=== PATIENT | male | born 1945 | race Caucasian/White ===

== ENCOUNTER 2016-09-12 07:55 | Inpatient (IN) | payer OTHER, MEDICAID ==
[~2016-09-12] VITALS: Ht 180.3 cm; Wt 78.0 kg
[2016-09-12 07:55] VITALS: BP_SYST 159
[~2016-09-12 07:55] MED LIST: CAT.1 PO; CYM30 PO; HYDR-4100 PO; IPRA3AMP9 INH; LEVO500T20 PO; LEVO50TA77 PO; METO-290 PO; MULT PO; NEU300 PO; ONDA4TAB5 PO; PRO40 PO; SSREG SUBCUT; WARF1TAB2 PO
[2016-09-12] MEDS ORDERED: NACL 0.9% 1,000 ML IV ONE (08:14)
[2016-09-12] MEDS ORDERED: LORazepam 2 MG/ML VIAL (FOR ER USE) IVP ONE (08:15)
[2016-09-12 09:05] LABS: ANION GAP 22 (5-15); CALCIUM 8.8 mg/dL (8.4-11.0); CHLORIDE 103 mmol/L (98-107); CREATININE 5.89 mg/dL (0.55-1.30); GLUCOSE 131 mg/dL (70-99); POTASSIUM 3.9 mmol/L (3.5-5.1); SODIUM SERUM 143 mmol/L (136-145); UREA NITROGEN, BLOOD 55 mg/dL (8-21)
[2016-09-12 09:09] LABS: INR 1.1 (0.80-1.20); PROTHROMBIN TIME 11.9 SECS (9.5-12.5)
[2016-09-12 09:12] LABS: ALANINE AMINOTRANSFERASE 40 U/L (12-78); ALBUMIN 2.8 g/dL (3.4-4.8); ASPARTATE AMINOTRANSFERASE 66 U/L (10-37); TOTAL BILIRUBIN 0.8 mg/dL (0.0-1.0); TOTAL PROTEIN, SERUM 7.3 g/dL (6.4-8.3)
[2016-09-12 09:14] LABS: BASOPHILS # (AUTO) 0.1 K/uL (0.0-0.2); BASOPHILS % (AUTO) 0.7 % (0.0-2.0); EOSINOPHILS % (AUTO) 0.3 % (0.0-4.0); HEMATOCRIT 27.3 % (36-54); HEMOGLOBIN 9.1 g/dL (14.0-18.0); LYMPHOCYTES # (AUTO) 0.8 K/uL (1.0-5.5); LYMPHOCYTES % (AUTO) 6.7 % (20.5-51.5); MEAN CORPUSCULAR HEMOGLOBIN 31 pg (27-31); MEAN CORPUSCULAR HGB CONC 34 % (32-36); MEAN CORPUSCULAR VOLUME 93 fL (79.0-98.0); MONOCYTES # (AUTO) 0.7 K/uL (0.0-1.0); MONOCYTES % (AUTO) 6.2 % (1.7-9.3); NEUTROPHILS # (AUTO) 10.1 K/uL (1.8-7.7); NEUTROPHILS % (AUTO) 86.1 % (40.0-70.0); PLATELET COUNT (AUTO) 286 K/uL (130-430); RED BLOOD CELL COUNT(AUTO) 2.94 MIL/uL (4.2-6.2); RED CELL DISTRIBUTION WIDTH 13.5 % (9.0-15.0); WHITE BLOOD COUNT (AUTO) 11.7 K/uL (4.8-10.8)
[2016-09-12] MEDS ORDERED: FAMO20TA98 PO (11:45)
[2016-09-12] MEDS ORDERED: FOLI0.8T2 PO (11:45)
[2016-09-12] MEDS ORDERED: MAXPM1 IV (11:45)
[2016-09-12] MEDS ORDERED: DULR10 RC (11:51)
[2016-09-12] MEDS ORDERED: HYDR-1189 PO (11:51)
[2016-09-12] MEDS ORDERED: ACET-1010 PO (11:51)
[2016-09-12] MEDS ORDERED: ACET-2165 PO (11:51)
[2016-09-12] MEDS ORDERED: DIPH25CA83 PO (11:51)
[2016-09-12] MEDS ORDERED: LACT10SO66 PO (11:51)
[2016-09-12 12:10] VITALS: BP_SYST 142
[2016-09-12 13:48] LABS: BLOOD, URINE 3+ (NEGATIVE); COLOR,URINE YELLOW (YELLOW); GLUCOSE,URINE NEGATIVE (NEGATIVE); KETONES,URINE 1+ (NEGATIVE); LEUKOCYTE ESTERASE ,URINE 1+ (NEGATIVE); NITRITE, URINE NEGATIVE (NEGATIVE); PH,URINE 5.5 (5.0-8.0); PROTEIN URINE 2+ (NEGATIVE); UROBILINOGEN,URINE 0.2 (0.2-1.0)
[2016-09-12 14:09] LABS: BILIRUBIN,URINE NEGATIVE (NEGATIVE); CLARITY/URINE HAZY (CLEAR)
[2016-09-12 14:10] LABS: BACTERIA,URINE FEW /HPF (None Seen); MUCUS,URINE None Seen /LPF (None Seen); RBC,URINE NONE SEEN /HPF (0-3); URINE AMORPHOUS URATE 2+ /HPF (None Seen)
[2016-09-12] MEDS ORDERED: ACETAMINOPHEN 325 MG TABLET PO PRN (15:15)
[2016-09-12 16:34] VITALS: BP_SYST 130
[2016-09-12] MEDS: FAMOTIDINE 20 MG TABLET PO SCH (17:30)
[2016-09-12 20:00] VITALS: BP_SYST 137
[2016-09-12] MEDS ORDERED: CEFEPIME 1 GM/DEXT-ISO-OSM 50 ML FROZ.PIGGY IV SCH (21:00)
[2016-09-12] MEDS: INSULIN REGULAR, HUMAN 100 UNITS/ML, 10 ML VIAL (novoLIN R) SUBCUT PRN (21:02)
[2016-09-12] MEDS: DIPHENHYDRAMINE HCL 25 MG CAPSULE PO PRN (21:14)
[2016-09-12] MEDS: HYDROcodone/ACETAMIN 5-325 MG TAB (NORCO/ VICODIN) PO PRN (21:14)
[2016-09-12] MEDS ORDERED: CEFEPIME 1 GM/VIAL (MAXIPIME) ONE (21:44)
[2016-09-12] MEDS: CEFEPIME 1 GM in D5W 50 ML IV SCH (21:55)
[2016-09-13] VITALS: BP_SYST 113
[2016-09-13 05:13] VITALS: BP_SYST 126
[2016-09-13] MEDS: FAMOTIDINE 20 MG TABLET PO SCH (06:01)
[2016-09-13 07:51] LABS: ALANINE AMINOTRANSFERASE 37 U/L (12-78); ALBUMIN 2.9 g/dL (3.4-4.8); ANION GAP 15 (5-15); ASPARTATE AMINOTRANSFERASE 46 U/L (10-37); CALCIUM 8.5 mg/dL (8.4-11.0); CHLORIDE 107 mmol/L (98-107); GLUCOSE 106 mg/dL (70-99); POTASSIUM 3.4 mmol/L (3.5-5.1); SODIUM SERUM 145 mmol/L (136-145); TOTAL BILIRUBIN 0.5 mg/dL (0.0-1.0); TOTAL PROTEIN, SERUM 7.1 g/dL (6.4-8.3); UREA NITROGEN, BLOOD 65 mg/dL (8-21)
[2016-09-13 08:00] VITALS: BP_SYST 158
[2016-09-13 08:08] LABS: BASOPHILS % (AUTO) 0.2 % (0.0-2.0); EOSINOPHILS # (AUTO) 0.3 K/uL (0.0-0.4); EOSINOPHILS % (AUTO) 3.1 % (0.0-4.0); HEMATOCRIT 26.7 % (36-54); LYMPHOCYTES # (AUTO) 1.2 K/uL (1.0-5.5); LYMPHOCYTES % (AUTO) 11.2 % (20.5-51.5); MEAN CORPUSCULAR HEMOGLOBIN 32 pg (27-31); MEAN CORPUSCULAR HGB CONC 34 % (32-36); MEAN CORPUSCULAR VOLUME 94 fL (79.0-98.0); MONOCYTES # (AUTO) 0.8 K/uL (0.0-1.0); MONOCYTES % (AUTO) 7.6 % (1.7-9.3); NEUTROPHILS # (AUTO) 8.4 K/uL (1.8-7.7); NEUTROPHILS % (AUTO) 77.9 % (40.0-70.0); PLATELET COUNT (AUTO) 261 K/uL (130-430); RED BLOOD CELL COUNT(AUTO) 2.86 MIL/uL (4.2-6.2); RED CELL DISTRIBUTION WIDTH 13.8 % (9.0-15.0); WHITE BLOOD COUNT (AUTO) 10.7 K/uL (4.8-10.8)
[2016-09-13] MEDS ORDERED: DIPHENHYDRAMINE INJ 50 MG/ML VIAL IVP ONE (08:45)
[2016-09-13] MEDS: NEPHROVITE, (FOLIC ACID/VITAMIN B COMP W-C 1 TAB) PO SCH (08:51)
[2016-09-13] MEDS ORDERED: DIPHENHYDRAMINE INJ 50 MG/ML VIAL ONE (08:55)
[2016-09-13] MEDS ORDERED: BISACODYL 10 MG/SUPPOSITORY RC PRN (09:00)
[2016-09-13] MEDS ORDERED: PERMETHRIN 60 GM TOPICAL CREAM (ELIMITE) TP ONE ×3 (09:00→17:00)
[2016-09-13 12:42] VITALS: BP_SYST 139
[2016-09-13 16:54] VITALS: BP_SYST 140
[2016-09-13 19:45] VITALS: BP_SYST 126
[2016-09-13] MEDS: HYDROcodone/ACETAMIN 5-325 MG TAB (NORCO/ VICODIN) PO PRN (20:04)
[2016-09-13] MEDS: CEFEPIME 1 GM in D5W 50 ML IV SCH (21:51)
[2016-09-13] MEDS ORDERED: POTASSIUM CHLORIDE 20 MEQ TAB.PRT.SR PO ONE (22:30)
[2016-09-13] MEDS: D5/0.45 NS 1,000 ML IV SCH (22:54)
[2016-09-13] MEDS: LACTULOSE 20 GM/30 ML UDC PO PRN (23:37)
[2016-09-13] MEDS: DIPHENHYDRAMINE HCL 25 MG CAPSULE PO PRN (23:37)
[2016-09-14] VITALS (7 sets, daily range): BP systolic 120–133
[2016-09-14] MEDS: FAMOTIDINE 20 MG TABLET PO SCH (06:17)
[2016-09-14] MEDS: HYDROcodone/ACETAMIN 5-325 MG TAB (NORCO/ VICODIN) PO PRN ×2 (08:02→16:16)
[2016-09-14] MEDS: NEPHROVITE, (FOLIC ACID/VITAMIN B COMP W-C 1 TAB) PO SCH (09:00)
[2016-09-14] MEDS: MORPHINE 2 MG/ML INJ. SYRINGE IVP PRN ×2 (11:34→18:04)
[2016-09-14 11:53] LABS: BASOPHILS % (AUTO) 0.4 % (0.0-2.0); EOSINOPHILS # (AUTO) 0.5 K/uL (0.0-0.4); EOSINOPHILS % (AUTO) 5.3 % (0.0-4.0); HEMATOCRIT 24.2 % (36-54); HEMOGLOBIN 8.1 g/dL (14.0-18.0); LYMPHOCYTES # (AUTO) 1.2 K/uL (1.0-5.5); LYMPHOCYTES % (AUTO) 11.6 % (20.5-51.5); MEAN CORPUSCULAR HEMOGLOBIN 31 pg (27-31); MEAN CORPUSCULAR HGB CONC 33 % (32-36); MEAN CORPUSCULAR VOLUME 94 fL (79.0-98.0); MONOCYTES # (AUTO) 0.6 K/uL (0.0-1.0); NEUTROPHILS % (AUTO) 76.7 % (40.0-70.0); PLATELET COUNT (AUTO) 255 K/uL (130-430); RED BLOOD CELL COUNT(AUTO) 2.58 MIL/uL (4.2-6.2); RED CELL DISTRIBUTION WIDTH 14.1 % (9.0-15.0); WHITE BLOOD COUNT (AUTO) 10.3 K/uL (4.8-10.8)
[2016-09-14 12:05] LABS: ALANINE AMINOTRANSFERASE 27 U/L (12-78); ALBUMIN 2.5 g/dL (3.4-4.8); ANION GAP 10 (5-15); ASPARTATE AMINOTRANSFERASE 31 U/L (10-37); CALCIUM 7.9 mg/dL (8.4-11.0); CHLORIDE 107 mmol/L (98-107); CREATININE 6.73 mg/dL (0.55-1.30); GLUCOSE 119 mg/dL (70-99); POTASSIUM 3.6 mmol/L (3.5-5.1); SODIUM SERUM 141 mmol/L (136-145); TOTAL BILIRUBIN 0.4 mg/dL (0.0-1.0); TOTAL PROTEIN, SERUM 6.4 g/dL (6.4-8.3); UREA NITROGEN, BLOOD 64 mg/dL (8-21)
[2016-09-14] MEDS: D5/0.45 NS 1,000 ML IV SCH (12:09)
[2016-09-14] MEDS: DIPHENHYDRAMINE HCL 25 MG CAPSULE PO PRN (18:36)
[2016-09-14] MEDS: CEFEPIME 1 GM in D5W 50 ML IV SCH (21:00)
[2016-09-15] VITALS: BP_SYST 122
[2016-09-15] MEDS: DIPHENHYDRAMINE HCL 25 MG CAPSULE PO PRN ×2 (01:04→21:02)
[2016-09-15] MEDS: D5/0.45 NS 1,000 ML IV SCH ×3 (01:04→21:02)
[2016-09-15] MEDS: MORPHINE 2 MG/ML INJ. SYRINGE IVP PRN ×3 (01:05→15:45)
[2016-09-15 04:43] VITALS: BP_SYST 128
[2016-09-15] MEDS: FAMOTIDINE 20 MG TABLET PO SCH (07:00)
[2016-09-15 08:00] VITALS: BP_SYST 107
[2016-09-15] MEDS: NEPHROVITE, (FOLIC ACID/VITAMIN B COMP W-C 1 TAB) PO SCH (09:00)
[2016-09-15] MEDS ORDERED: GELATIN SPONGE 100 TP ONE (09:15)
[2016-09-15] MEDS ORDERED: THROMBIN (BOVINE) 5000 UNITS/ VIAL TP ONE (09:15)
[2016-09-15] MEDS ORDERED: CEFAZOLIN 2 GM IVPB PREMIX 50 ML IV ONE (09:15)
[2016-09-15] MEDS ORDERED: NS 1000 ML BAG IV ONE (09:15)
[2016-09-15] MEDS ORDERED: KETAMINE HCL 500 MG/10 ML VIAL IVP ONE (09:15)
[2016-09-15] MEDS ORDERED: LR 1,000 ML IV.SOLN IV ONE (09:15)
[2016-09-15] MEDS ORDERED: NS 100 ML BAG IV ONE (09:15)
[2016-09-15] MEDS ORDERED: MIDAZOLAM HCL 5 MG/5 ML VIAL IVP ONE (09:15)
[2016-09-15] MEDS ORDERED: LIDOCAINE/EPI 1% 1:100000 20 ML VIAL INJ ONE (09:15)
[2016-09-15] MEDS ORDERED: KETAMINE HCL 500 MG/10 ML VIAL ONE (09:23)
[2016-09-15] MEDS ORDERED: LR 1,000 ML IV SCH ×2 (09:50→09:52)
[2016-09-15] MEDS ORDERED: HYDROmorphone 1 MG INJ. 1 MG/ML AMPUL IVP PRN ×2 (10:00)
[2016-09-15] MEDS ORDERED: HYDROmorphone 2 MG/ML VIAL IVP PRN ×4 (10:00)
[2016-09-15] MEDS ORDERED: MEPERIDINE HCL/PF 25 MG/ML DISP.SYRIN IVP PRN ×2 (10:00)
[2016-09-15] MEDS: HYDROcodone/ACETAMIN 5-325 MG TAB (NORCO/ VICODIN) PO PRN (16:37)
[2016-09-15] MEDS: INSULIN REGULAR, HUMAN 100 UNITS/ML, 10 ML VIAL (novoLIN R) SUBCUT PRN (17:41)
[2016-09-15 20:10] VITALS: BP_SYST 140
[2016-09-15] MEDS: CEFEPIME 1 GM in D5W 50 ML IV SCH (21:02)
[2016-09-16 00:02] VITALS: BP_SYST 150
[2016-09-16] MEDS: DIPHENHYDRAMINE HCL 25 MG CAPSULE PO PRN ×2 (03:26→09:26)
[2016-09-16] MEDS: MORPHINE 2 MG/ML INJ. SYRINGE IVP PRN ×3 (03:26→14:27)
[2016-09-16 03:35] VITALS: BP_SYST 148
[2016-09-16] MEDS: FAMOTIDINE 20 MG TABLET PO SCH (06:56)
[2016-09-16 09:25] VITALS: BP_SYST 102
[2016-09-16] MEDS: LACTULOSE 20 GM/30 ML UDC PO PRN (09:26)
[2016-09-16] MEDS: NEPHROVITE, (FOLIC ACID/VITAMIN B COMP W-C 1 TAB) PO SCH (09:26)
[2016-09-16] MEDS: HYDROcodone/ACETAMIN 5-325 MG TAB (NORCO/ VICODIN) PO PRN ×2 (09:30→16:25)
[2016-09-16 12:50] VITALS: BP_SYST 110
[2016-09-16] MEDS: D5/0.45 NS 1,000 ML IV SCH (14:27)
[2016-09-16 16:56] VITALS: BP_SYST 135
[2016-09-16] MEDS: CEFEPIME 1 GM in D5W 50 ML IV SCH (20:23)
[2016-09-16 23:34] VITALS: BP_SYST 101
[2016-09-17] MEDS: HYDROcodone/ACETAMIN 5-325 MG TAB (NORCO/ VICODIN) PO PRN ×2 (01:11→18:20)
[2016-09-17] MEDS: DIPHENHYDRAMINE HCL 25 MG CAPSULE PO PRN ×2 (01:15→18:20)
[2016-09-17 04:02] VITALS: BP_SYST 122
[2016-09-17] MEDS: D5/0.45 NS 1,000 ML IV SCH ×2 (05:34→15:06)
[2016-09-17] MEDS: FAMOTIDINE 20 MG TABLET PO SCH (06:52)
[2016-09-17 08:00] VITALS: BP_SYST 110
[2016-09-17] MEDS: NEPHROVITE, (FOLIC ACID/VITAMIN B COMP W-C 1 TAB) PO SCH (10:37)
[2016-09-17 12:53] VITALS: BP_SYST 121
[2016-09-17] MEDS: MORPHINE 2 MG/ML INJ. SYRINGE IVP PRN (15:03)
[2016-09-17 16:34] VITALS: BP_SYST 116
[2016-09-17 20:30] VITALS: BP_SYST 112
[2016-09-17] MEDS: CEFEPIME 1 GM in D5W 50 ML IV SCH (22:36)
[2016-09-17] MEDS: INSULIN REGULAR, HUMAN 100 UNITS/ML, 10 ML VIAL (novoLIN R) SUBCUT PRN (22:43)
[2016-09-18] VITALS (7 sets, daily range): BP systolic 105–143
[2016-09-18] MEDS: D5/0.45 NS 1,000 ML IV SCH (05:41)
[2016-09-18] MEDS: FAMOTIDINE 20 MG TABLET PO SCH (06:13)
[2016-09-18] MEDS: INSULIN REGULAR, HUMAN 100 UNITS/ML, 10 ML VIAL (novoLIN R) SUBCUT PRN (06:35)
[2016-09-18] MEDS: NEPHROVITE, (FOLIC ACID/VITAMIN B COMP W-C 1 TAB) PO SCH (09:42)
[2016-09-18] MEDS: MORPHINE 2 MG/ML INJ. SYRINGE IVP PRN (09:49)
[2016-09-18] MEDS: DIPHENHYDRAMINE HCL 25 MG CAPSULE PO PRN ×2 (10:57→18:07)
[2016-09-18] MEDS: HYDROcodone/ACETAMIN 5-325 MG TAB (NORCO/ VICODIN) PO PRN (12:39)
[2016-09-18] MEDS ORDERED: MORPHINE 2 MG/ML INJ. SYRINGE IVP ONE (13:00)
[2016-09-18] MEDS: CEFEPIME 1 GM in D5W 50 ML IV SCH (21:23)
[2016-09-19] VITALS (7 sets, daily range): BP systolic 104–138
[2016-09-19] MEDS: D5/0.45 NS 1,000 ML IV SCH ×3 (01:23→17:22)
[2016-09-19] MEDS: FAMOTIDINE 20 MG TABLET PO SCH (07:13)
[2016-09-19] MEDS: NEPHROVITE, (FOLIC ACID/VITAMIN B COMP W-C 1 TAB) PO SCH (09:19)
[2016-09-19] MEDS: MORPHINE 2 MG/ML INJ. SYRINGE IVP PRN (09:32)
[2016-09-19 10:30] LABS: BASOPHILS % (AUTO) 0.3 % (0.0-2.0); EOSINOPHILS # (AUTO) 0.3 K/uL (0.0-0.4); EOSINOPHILS % (AUTO) 2.9 % (0.0-4.0); HEMOGLOBIN 7.2 g/dL (14.0-18.0); LYMPHOCYTES # (AUTO) 0.5 K/uL (1.0-5.5); LYMPHOCYTES % (AUTO) 5.7 % (20.5-51.5); MEAN CORPUSCULAR HEMOGLOBIN 31 pg (27-31); MEAN CORPUSCULAR HGB CONC 33 % (32-36); MEAN CORPUSCULAR VOLUME 95 fL (79.0-98.0); MONOCYTES # (AUTO) 0.6 K/uL (0.0-1.0); MONOCYTES % (AUTO) 6.5 % (1.7-9.3); NEUTROPHILS # (AUTO) 7.6 K/uL (1.8-7.7); NEUTROPHILS % (AUTO) 84.6 % (40.0-70.0); PLATELET COUNT (AUTO) 161 K/uL (130-430); RED BLOOD CELL COUNT(AUTO) 2.33 MIL/uL (4.2-6.2); RED CELL DISTRIBUTION WIDTH 14.7 % (9.0-15.0)
[2016-09-19 10:37] LABS: ALBUMIN 1.9 g/dL (3.4-4.8); ANION GAP 6 (5-15); ASPARTATE AMINOTRANSFERASE 23 U/L (10-37); CALCIUM 7.3 mg/dL (8.4-11.0); CHLORIDE 102 mmol/L (98-107); CREATININE 4.58 mg/dL (0.55-1.30); GLUCOSE 127 mg/dL (70-99); POTASSIUM 3.2 mmol/L (3.5-5.1); SODIUM SERUM 135 mmol/L (136-145); TOTAL BILIRUBIN 0.4 mg/dL (0.0-1.0); TOTAL PROTEIN, SERUM 5.7 g/dL (6.4-8.3); UREA NITROGEN, BLOOD 33 mg/dL (8-21)
[2016-09-19 10:59] LABS: ALANINE AMINOTRANSFERASE 8 U/L (12-78)
[2016-09-19] MEDS ORDERED: CEFEPIME 1 GM in D5W 50 ML IV SCH (21:00)
[2016-09-20] MEDS: DIPHENHYDRAMINE HCL 25 MG CAPSULE PO PRN (00:30)
[2016-09-20] MEDS: MORPHINE 2 MG/ML INJ. SYRINGE IVP PRN ×2 (00:31→08:49)
[2016-09-20 03:42] VITALS: BP_SYST 102
[2016-09-20] MEDS: FAMOTIDINE 20 MG TABLET PO SCH (06:43)
[2016-09-20 08:00] VITALS: BP_SYST 80
[2016-09-20] MEDS: NEPHROVITE, (FOLIC ACID/VITAMIN B COMP W-C 1 TAB) PO SCH (08:49)
[2016-09-20 09:02] VITALS: BP_SYST 80
== END 2016-09-20 11:10 | DRG 252 ==
LOC: SED 07:55 → SMU 11:40
PROVIDERS: ATTEND Internal Medicine Hospice and Palliative Medicine
PROC: 5A1D60Z (ICD-10-PCS; 2016-09-15)
PROC: 041 Lower Arteries, Bypass (ICD-10-PCS; principal; 2016-09-16)
PROC: 06HN33Z Insertion of Infusion Device into Left Femoral Vein, Percutaneous Approach (ICD-10-PCS; 2016-09-16)
DX: T82.41XA Breakdown (mechanical) of vascular dialysis catheter, initial encounter (principal); N18.6 End stage renal disease; I13.2 Hypertensive heart and chronic kidney disease with heart failure and with stage 5 chronic kidney disease, or end stage renal disease; S42.309A Unspecified fracture of shaft of humerus, unspecified arm, initial encounter for closed fracture; B86 Scabies; E11.22 Type 2 diabetes mellitus with diabetic chronic kidney disease; J44.9 Chronic obstructive pulmonary disease, unspecified; M19.90 Unspecified osteoarthritis, unspecified site; E11.51 Type 2 diabetes mellitus with diabetic peripheral angiopathy without gangrene; E11.40 Type 2 diabetes mellitus with diabetic neuropathy, unspecified; K30 Functional dyspepsia; M48.00 Spinal stenosis, site unspecified; D63.1 Anemia in chronic kidney disease; Y84.1 Kidney dialysis as the cause of abnormal reaction of the patient, or of later complication, without mention of misadventure at the time of the procedure; Y92.89 Other specified places as the place of occurrence of the external cause; Z79.899 Other long term (current) drug therapy
CPT/HCPCS: 36415; 71010; 72192-TC; 73030; 73060-TC; 73502; 80053; 81000-TC; 82962; 85025; 85610-TC; 85730-TC; 86886; 86900; 86901; 86920; 87081; 87086; 87210-TC; 90935; 90937; 93005; 93970; 96361; 96374; 99285; G0365; J0690; J0692; J1200; J1815; J2060; J2250; J2270; J7030; J7060; J7120; P9021; Q0163

== ENCOUNTER 2016-09-27 15:44 | Inpatient (IN) | payer OTHER, MEDICAID ==
[~2016-09-27] VITALS: Ht 188 cm; Wt 83.5 kg
[~2016-09-27 15:44] MED LIST changes: +ACET-1010 PO; +ACET-2165 PO; -CAT.1 PO; -CYM30 PO; +DIPH25CA83 PO; +DULR10 RC; +FAMO20TA98 PO; +FOLI0.8T2 PO; +HYDR-1189 PO; -HYDR-4100 PO; -IPRA3AMP9 INH; +LACT10SO66 PO; -LEVO500T20 PO; -LEVO50TA77 PO; -METO-290 PO; -MULT PO; -NEU300 PO; -ONDA4TAB5 PO; -PRO40 PO; -SSREG SUBCUT; -WARF1TAB2 PO
[2016-09-27 15:50] VITALS: BP_SYST 100
[2016-09-27 17:02] LABS: BASOPHILS % (AUTO) 0.5 % (0.0-2.0); EOSINOPHILS # (AUTO) 0.4 K/uL (0.0-0.4); EOSINOPHILS % (AUTO) 4.4 % (0.0-4.0); HEMATOCRIT 24.4 % (36-54); LYMPHOCYTES # (AUTO) 1.1 K/uL (1.0-5.5); LYMPHOCYTES % (AUTO) 12.9 % (20.5-51.5); MEAN CORPUSCULAR HEMOGLOBIN 30 pg (27-31); MEAN CORPUSCULAR HGB CONC 33 % (32-36); MEAN CORPUSCULAR VOLUME 92 fL (79.0-98.0); MONOCYTES # (AUTO) 0.4 K/uL (0.0-1.0); MONOCYTES % (AUTO) 4.2 % (1.7-9.3); NEUTROPHILS # (AUTO) 6.6 K/uL (1.8-7.7); PLATELET COUNT (AUTO) 258 K/uL (130-430); RED BLOOD CELL COUNT(AUTO) 2.65 MIL/uL (4.2-6.2); RED CELL DISTRIBUTION WIDTH 14.6 % (9.0-15.0); WHITE BLOOD COUNT (AUTO) 8.5 K/uL (4.8-10.8)
[2016-09-27 17:14] LABS: BILIRUBIN,URINE NEGATIVE (NEGATIVE); BLOOD, URINE 3+ (NEGATIVE); CLARITY/URINE SL CLOUDY (CLEAR); COLOR,URINE YELLOW (YELLOW); GLUCOSE,URINE NEGATIVE (NEGATIVE); KETONES,URINE NEGATIVE (NEGATIVE); LEUKOCYTE ESTERASE ,URINE 3+ (NEGATIVE); NITRITE, URINE NEGATIVE (NEGATIVE); PH,URINE 5.5 (5.0-8.0); PROTEIN URINE 2+ (NEGATIVE); UROBILINOGEN,URINE 0.2 (0.2-1.0)
[2016-09-27 17:15] LABS: ALANINE AMINOTRANSFERASE 15 U/L (12-78); ALBUMIN 2.2 g/dL (3.4-4.8); AMYLASE 66 U/L (0-100); ANION GAP 12 (5-15); ASPARTATE AMINOTRANSFERASE 19 U/L (10-37); CALCIUM 7.6 mg/dL (8.4-11.0); CHLORIDE 95 mmol/L (98-107); GLUCOSE 102 mg/dL (70-99); LIPASE 103 U/L (73-393); POTASSIUM 3.9 mmol/L (3.5-5.1); SODIUM SERUM 132 mmol/L (136-145); TOTAL BILIRUBIN 0.3 mg/dL (0.0-1.0); TOTAL PROTEIN, SERUM 6.6 g/dL (6.4-8.3); UREA NITROGEN, BLOOD 84 mg/dL (8-21)
[2016-09-27 17:18] LABS: CREATININE 11.77 mg/dL (0.55-1.30)
[2016-09-27 17:23] LABS: RBC,URINE >100 /HPF (0-3)
[2016-09-27 17:24] LABS: BACTERIA,URINE FEW /HPF (None Seen); WBC,URINE >100 /HPF (0-3)
[2016-09-27] MEDS ORDERED: ASCO500T20 PO (18:28)
[2016-09-27] MEDS ORDERED: SSNOVOLOG SUBCUT (18:28)
[2016-09-27] MEDS ORDERED: ONDANSETRON HCL 4 MG/2 ML VIAL IVP ONE (18:30)
[2016-09-27] MEDS ORDERED: HYDROmorphone 1 MG INJ. 1 MG/ML AMPUL IVP ONE (18:30)
[2016-09-27] MEDS ORDERED: CEFTAZIDIME 1 GM VIAL ONE (18:35)
[2016-09-27 19:50] VITALS: BP_SYST 100
[2016-09-28 00:24] VITALS: BP_SYST 118
[2016-09-28 04:06] VITALS: BP_SYST 104
[2016-09-28 07:53] LABS: BASOPHILS % (AUTO) 0.3 % (0.0-2.0); EOSINOPHILS # (AUTO) 0.4 K/uL (0.0-0.4); EOSINOPHILS % (AUTO) 4.2 % (0.0-4.0); HEMOGLOBIN 7.6 g/dL (14.0-18.0); LYMPHOCYTES # (AUTO) 0.8 K/uL (1.0-5.5); LYMPHOCYTES % (AUTO) 9.1 % (20.5-51.5); MEAN CORPUSCULAR HEMOGLOBIN 31 pg (27-31); MEAN CORPUSCULAR HGB CONC 33 % (32-36); MEAN CORPUSCULAR VOLUME 93 fL (79.0-98.0); MONOCYTES # (AUTO) 0.4 K/uL (0.0-1.0); MONOCYTES % (AUTO) 4.3 % (1.7-9.3); NEUTROPHILS # (AUTO) 6.8 K/uL (1.8-7.7); NEUTROPHILS % (AUTO) 82.1 % (40.0-70.0); PLATELET COUNT (AUTO) 231 K/uL (130-430); RED BLOOD CELL COUNT(AUTO) 2.47 MIL/uL (4.2-6.2); RED CELL DISTRIBUTION WIDTH 14.1 % (9.0-15.0); WHITE BLOOD COUNT (AUTO) 8.4 K/uL (4.8-10.8)
[2016-09-28 08:03] VITALS: BP_SYST 133
[2016-09-28 08:11] LABS: ALANINE AMINOTRANSFERASE 14 U/L (12-78); ALBUMIN 1.9 g/dL (3.4-4.8); ANION GAP 12 (5-15); ASPARTATE AMINOTRANSFERASE 17 U/L (10-37); CALCIUM 7.6 mg/dL (8.4-11.0); CHLORIDE 99 mmol/L (98-107); GLUCOSE 84 mg/dL (70-99); POTASSIUM 4.1 mmol/L (3.5-5.1); SODIUM SERUM 134 mmol/L (136-145); TOTAL BILIRUBIN 0.3 mg/dL (0.0-1.0); TOTAL PROTEIN, SERUM 6.2 g/dL (6.4-8.3); UREA NITROGEN, BLOOD 86 mg/dL (8-21)
[2016-09-28 08:27] LABS: CREATININE 11.87 mg/dL (0.55-1.30)
[2016-09-28] MEDS ORDERED: LACTULOSE 20 GM/30 ML UDC PO PRN (09:30)
[2016-09-28] MEDS ORDERED: ACETAMINOPHEN 325 MG TABLET PO SCH (09:30)
[2016-09-28] MEDS: ACETAMINOPHEN 325 MG TABLET PO PRN ×2 (10:04→20:00)
[2016-09-28] MEDS ORDERED: ACETAMINOPHEN 500 MG TABLET PO SCH (12:00)
[2016-09-28 12:07] VITALS: BP_SYST 112
[2016-09-28] MEDS: HYDROcodone/ACETAMIN 5-325 MG TAB (NORCO/ VICODIN) PO PRN (15:48)
[2016-09-28 17:19] VITALS: BP_SYST 103
[2016-09-28] MEDS: cefTRIAXone 1 GM in D5W 50 ML IV SCH (17:51)
[2016-09-28] MEDS ORDERED: cefTRIAXone 1 GM in D5W 50 ML IV SCH (18:30)
[2016-09-28 20:00] VITALS: BP_SYST 130
[2016-09-29] VITALS (7 sets, daily range): BP systolic 94–141
[2016-09-29] MEDS: FAMOTIDINE 20 MG TABLET PO SCH (05:57)
[2016-09-29] MEDS: NEPHROVITE, (FOLIC ACID/VITAMIN B COMP W-C 1 TAB) PO SCH (09:03)
[2016-09-29] MEDS: ASCORBIC ACID 500 MG TABLET PO SCH (09:03)
[2016-09-29] MEDS: HYDROcodone/ACETAMIN 5-325 MG TAB (NORCO/ VICODIN) PO PRN ×2 (09:04→18:12)
[2016-09-29] MEDS ORDERED: CLINDAMYCIN 300 MG in D5W 50 ML IV SCH (12:00)
[2016-09-29] MEDS: DIPHENHYDRAMINE HCL 25 MG CAPSULE PO PRN ×2 (13:53→22:31)
[2016-09-29] MEDS: CLINDAMYCIN 300 MG in D5W 50 ML IV SCH ×2 (15:06→17:44)
[2016-09-29] MEDS: cefTRIAXone 1 GM in D5W 50 ML IV SCH (17:44)
[2016-09-30] MEDS: DIPHENHYDRAMINE INJ 50 MG/ML VIAL IVP PRN ×2 (00:30→23:32)
[2016-09-30] MEDS: CLINDAMYCIN 300 MG in D5W 50 ML IV SCH ×5 (00:30→23:32)
[2016-09-30] MEDS: LORazepam 2 MG/ML VIAL IVP PRN ×2 (00:31→19:56)
[2016-09-30 03:44] VITALS: BP_SYST 128
[2016-09-30] MEDS: FAMOTIDINE 20 MG TABLET PO SCH (06:22)
[2016-09-30 07:31] LABS: BASOPHILS % (AUTO) 0.3 % (0.0-2.0); EOSINOPHILS # (AUTO) 0.3 K/uL (0.0-0.4); EOSINOPHILS % (AUTO) 3.5 % (0.0-4.0); HEMOGLOBIN 7.5 g/dL (14.0-18.0); LYMPHOCYTES # (AUTO) 0.8 K/uL (1.0-5.5); LYMPHOCYTES % (AUTO) 9.2 % (20.5-51.5); MEAN CORPUSCULAR HEMOGLOBIN 31 pg (27-31); MEAN CORPUSCULAR HGB CONC 33 % (32-36); MEAN CORPUSCULAR VOLUME 94 fL (79.0-98.0); MONOCYTES # (AUTO) 0.6 K/uL (0.0-1.0); MONOCYTES % (AUTO) 7.1 % (1.7-9.3); NEUTROPHILS # (AUTO) 6.5 K/uL (1.8-7.7); NEUTROPHILS % (AUTO) 79.9 % (40.0-70.0); PLATELET COUNT (AUTO) 241 K/uL (130-430); RED BLOOD CELL COUNT(AUTO) 2.44 MIL/uL (4.2-6.2); RED CELL DISTRIBUTION WIDTH 14.9 % (9.0-15.0); WHITE BLOOD COUNT (AUTO) 8.2 K/uL (4.8-10.8)
[2016-09-30 07:47] LABS: ALANINE AMINOTRANSFERASE 11 U/L (12-78); ALBUMIN 1.9 g/dL (3.4-4.8); ANION GAP 6 (5-15); ASPARTATE AMINOTRANSFERASE 16 U/L (10-37); CALCIUM 7.7 mg/dL (8.4-11.0); CHLORIDE 102 mmol/L (98-107); CREATININE 4.57 mg/dL (0.55-1.30); GLUCOSE 95 mg/dL (70-99); SODIUM SERUM 138 mmol/L (136-145); TOTAL BILIRUBIN 0.2 mg/dL (0.0-1.0); TOTAL PROTEIN, SERUM 6.1 g/dL (6.4-8.3); UREA NITROGEN, BLOOD 22 mg/dL (8-21)
[2016-09-30 08:00] VITALS: BP_SYST 106
[2016-09-30 08:01] LABS: POTASSIUM 2.8 mmol/L (3.5-5.1)
[2016-09-30] MEDS: NEPHROVITE, (FOLIC ACID/VITAMIN B COMP W-C 1 TAB) PO SCH (09:26)
[2016-09-30] MEDS: ASCORBIC ACID 500 MG TABLET PO SCH (09:26)
[2016-09-30 12:20] VITALS: BP_SYST 100
[2016-09-30] MEDS: HYDROcodone/ACETAMIN 5-325 MG TAB (NORCO/ VICODIN) PO PRN (14:37)
[2016-09-30] MEDS: cefTRIAXone 1 GM in D5W 50 ML IV SCH (17:41)
[2016-09-30 20:00] VITALS: BP_SYST 101
[2016-09-30 21:36] VITALS: BP_SYST 101
[2016-10-01 01:25] VITALS: BP_SYST 144
[2016-10-01 03:34] VITALS: BP_SYST 120
[2016-10-01] MEDS: FAMOTIDINE 20 MG TABLET PO SCH (06:11)
[2016-10-01] MEDS: CLINDAMYCIN 300 MG in D5W 50 ML IV SCH ×4 (06:11→23:14)
[2016-10-01 06:37] LABS: BASOPHILS % (AUTO) 0.2 % (0.0-2.0); EOSINOPHILS # (AUTO) 0.3 K/uL (0.0-0.4); EOSINOPHILS % (AUTO) 3.5 % (0.0-4.0); HEMATOCRIT 24.1 % (36-54); LYMPHOCYTES # (AUTO) 1.1 K/uL (1.0-5.5); LYMPHOCYTES % (AUTO) 12.5 % (20.5-51.5); MEAN CORPUSCULAR HEMOGLOBIN 31 pg (27-31); MEAN CORPUSCULAR HGB CONC 33 % (32-36); MEAN CORPUSCULAR VOLUME 94 fL (79.0-98.0); MONOCYTES # (AUTO) 0.7 K/uL (0.0-1.0); MONOCYTES % (AUTO) 7.7 % (1.7-9.3); NEUTROPHILS # (AUTO) 6.7 K/uL (1.8-7.7); NEUTROPHILS % (AUTO) 76.1 % (40.0-70.0); PLATELET COUNT (AUTO) 222 K/uL (130-430); RED BLOOD CELL COUNT(AUTO) 2.58 MIL/uL (4.2-6.2); RED CELL DISTRIBUTION WIDTH 15.1 % (9.0-15.0); WHITE BLOOD COUNT (AUTO) 8.8 K/uL (4.8-10.8)
[2016-10-01 07:17] LABS: ALANINE AMINOTRANSFERASE 11 U/L (12-78); ALBUMIN 1.8 g/dL (3.4-4.8); ANION GAP 4 (5-15); ASPARTATE AMINOTRANSFERASE 16 U/L (10-37); CALCIUM 7.5 mg/dL (8.4-11.0); CHLORIDE 104 mmol/L (98-107); CREATININE 3.94 mg/dL (0.55-1.30); GLUCOSE 86 mg/dL (70-99); SODIUM SERUM 139 mmol/L (136-145); TOTAL BILIRUBIN 0.3 mg/dL (0.0-1.0); TOTAL PROTEIN, SERUM 5.9 g/dL (6.4-8.3); UREA NITROGEN, BLOOD 18 mg/dL (8-21)
[2016-10-01] MEDS: ASCORBIC ACID 500 MG TABLET PO SCH (08:34)
[2016-10-01] MEDS: NEPHROVITE, (FOLIC ACID/VITAMIN B COMP W-C 1 TAB) PO SCH (08:34)
[2016-10-01] MEDS ORDERED: ALBUMIN HUMAN 25% 200 ML IV ONE (10:15)
[2016-10-01] MEDS ORDERED: POTASSIUM CHLORIDE 20 MEQ TAB.PRT.SR PO ONE (10:30)
[2016-10-01] MEDS ORDERED: ALBUMIN HUMAN 25% 100 ML IV PRN ×3 (11:15→16:00)
[2016-10-01 11:58] VITALS: BP_SYST 99
[2016-10-01 12:06] VITALS: BP_SYST 99
[2016-10-01] MEDS: HYDROcodone/ACETAMIN 5-325 MG TAB (NORCO/ VICODIN) PO PRN (16:34)
[2016-10-01] MEDS: cefTRIAXone 1 GM in D5W 50 ML IV SCH (17:16)
[2016-10-01] MEDS: NACL 0.9% 1,000 ML IV SCH ×2 (17:16→21:16)
[2016-10-01 18:43] VITALS: BP_SYST 95
[2016-10-01] MEDS: ACETAMINOPHEN 325 MG TABLET PO PRN (18:57)
[2016-10-01 20:00] VITALS: BP_SYST 114
[2016-10-02] VITALS (8 sets, daily range): BP systolic 95–137
[2016-10-02] MEDS: CLINDAMYCIN 300 MG in D5W 50 ML IV SCH ×4 (05:14→23:41)
[2016-10-02] MEDS: NACL 0.9% 1,000 ML IV SCH ×2 (06:16→19:00)
[2016-10-02] MEDS: FAMOTIDINE 20 MG TABLET PO SCH (06:19)
[2016-10-02 07:11] LABS: BASOPHILS % (AUTO) 0.4 % (0.0-2.0); EOSINOPHILS # (AUTO) 0.3 K/uL (0.0-0.4); HEMATOCRIT 23.6 % (36-54); HEMOGLOBIN 7.7 g/dL (14.0-18.0); LYMPHOCYTES # (AUTO) 1.1 K/uL (1.0-5.5); LYMPHOCYTES % (AUTO) 13.5 % (20.5-51.5); MEAN CORPUSCULAR HEMOGLOBIN 31 pg (27-31); MEAN CORPUSCULAR HGB CONC 32 % (32-36); MEAN CORPUSCULAR VOLUME 94 fL (79.0-98.0); MONOCYTES # (AUTO) 0.6 K/uL (0.0-1.0); MONOCYTES % (AUTO) 6.9 % (1.7-9.3); NEUTROPHILS # (AUTO) 6.3 K/uL (1.8-7.7); NEUTROPHILS % (AUTO) 75.2 % (40.0-70.0); PLATELET COUNT (AUTO) 215 K/uL (130-430); RED BLOOD CELL COUNT(AUTO) 2.51 MIL/uL (4.2-6.2); RED CELL DISTRIBUTION WIDTH 15.2 % (9.0-15.0); WHITE BLOOD COUNT (AUTO) 8.3 K/uL (4.8-10.8)
[2016-10-02 07:16] LABS: ALANINE AMINOTRANSFERASE 9 U/L (12-78); ALBUMIN 1.8 g/dL (3.4-4.8); ANION GAP 4 (5-15); ASPARTATE AMINOTRANSFERASE 15 U/L (10-37); CALCIUM 7.8 mg/dL (8.4-11.0); CHLORIDE 105 mmol/L (98-107); CREATININE 5.39 mg/dL (0.55-1.30); GLUCOSE 83 mg/dL (70-99); POTASSIUM 3.4 mmol/L (3.5-5.1); SODIUM SERUM 138 mmol/L (136-145); TOTAL BILIRUBIN 0.3 mg/dL (0.0-1.0); TOTAL PROTEIN, SERUM 5.9 g/dL (6.4-8.3); UREA NITROGEN, BLOOD 30 mg/dL (8-21)
[2016-10-02] MEDS: ASCORBIC ACID 500 MG TABLET PO SCH (10:31)
[2016-10-02] MEDS: NEPHROVITE, (FOLIC ACID/VITAMIN B COMP W-C 1 TAB) PO SCH (10:31)
[2016-10-02] MEDS: HYDROcodone/ACETAMIN 5-325 MG TAB (NORCO/ VICODIN) PO PRN ×2 (10:32→19:06)
[2016-10-02] MEDS: cefTRIAXone 1 GM in D5W 50 ML IV SCH (18:43)
[2016-10-02] MEDS: LORazepam 2 MG/ML VIAL IVP PRN (20:16)
[2016-10-03] VITALS (7 sets, daily range): BP systolic 107–135
[2016-10-03] MEDS: NACL 0.9% 1,000 ML IV SCH ×2 (02:13→12:49)
[2016-10-03] MEDS: CLINDAMYCIN 300 MG in D5W 50 ML IV SCH ×3 (05:22→19:17)
[2016-10-03] MEDS: FAMOTIDINE 20 MG TABLET PO SCH (05:57)
[2016-10-03 07:13] LABS: EOSINOPHILS # (AUTO) 0.3 K/uL (0.0-0.4); HEMATOCRIT 26.5 % (36-54); HEMOGLOBIN 8.8 g/dL (14.0-18.0); LYMPHOCYTES # (AUTO) 0.7 K/uL (1.0-5.5); LYMPHOCYTES % (AUTO) 6.3 % (20.5-51.5); MEAN CORPUSCULAR HEMOGLOBIN 31 pg (27-31); MEAN CORPUSCULAR HGB CONC 33 % (32-36); MEAN CORPUSCULAR VOLUME 94 fL (79.0-98.0); MONOCYTES # (AUTO) 0.4 K/uL (0.0-1.0); MONOCYTES % (AUTO) 3.4 % (1.7-9.3); NEUTROPHILS % (AUTO) 87.3 % (40.0-70.0); PLATELET COUNT (AUTO) 197 K/uL (130-430); RED BLOOD CELL COUNT(AUTO) 2.82 MIL/uL (4.2-6.2); RED CELL DISTRIBUTION WIDTH 14.8 % (9.0-15.0); WHITE BLOOD COUNT (AUTO) 11.4 K/uL (4.8-10.8)
[2016-10-03 07:24] LABS: ALANINE AMINOTRANSFERASE 10 U/L (12-78); ALBUMIN 1.7 g/dL (3.4-4.8); ANION GAP 8 (5-15); ASPARTATE AMINOTRANSFERASE 14 U/L (10-37); CALCIUM 7.1 mg/dL (8.4-11.0); CHLORIDE 102 mmol/L (98-107); CREATININE 6.19 mg/dL (0.55-1.30); GLUCOSE 89 mg/dL (70-99); POTASSIUM 3.5 mmol/L (3.5-5.1); SODIUM SERUM 134 mmol/L (136-145); TOTAL BILIRUBIN 0.4 mg/dL (0.0-1.0); TOTAL PROTEIN, SERUM 5.7 g/dL (6.4-8.3); UREA NITROGEN, BLOOD 36 mg/dL (8-21)
[2016-10-03] MEDS: NEPHROVITE, (FOLIC ACID/VITAMIN B COMP W-C 1 TAB) PO SCH (08:24)
[2016-10-03] MEDS: ASCORBIC ACID 500 MG TABLET PO SCH (08:24)
[2016-10-03] MEDS: HYDROcodone/ACETAMIN 5-325 MG TAB (NORCO/ VICODIN) PO PRN ×3 (08:25→17:44)
[2016-10-03] MEDS: DIPHENHYDRAMINE INJ 50 MG/ML VIAL IVP PRN (09:52)
[2016-10-03] MEDS ORDERED: FLUCONAZOLE 200 MG TABLET (DIFLUCAN) PO ONE (12:45)
[2016-10-03] MEDS ORDERED: LORazepam 1 MG TABLET PO PRN (13:45)
[2016-10-03] MEDS: cefTRIAXone 1 GM in D5W 50 ML IV SCH (17:37)
== END 2016-10-03 22:05 | DRG 602 ==
LOC: SED 15:44 → SMU 19:11
PROC: 5A1D60Z (ICD-10-PCS; 2016-09-28)
PROC: 30233N1 Transfusion of Nonautologous Red Blood Cells into Peripheral Vein, Percutaneous Approach (ICD-10-PCS; principal; 2016-09-30)
DX: L03.116 Cellulitis of left lower limb (principal); N18.6 End stage renal disease; E43 Unspecified severe protein-calorie malnutrition; I13.2 Hypertensive heart and chronic kidney disease with heart failure and with stage 5 chronic kidney disease, or end stage renal disease; N30.90 Cystitis, unspecified without hematuria; J44.9 Chronic obstructive pulmonary disease, unspecified; I50.9 Heart failure, unspecified; B86 Scabies; D63.1 Anemia in chronic kidney disease; E11.22 Type 2 diabetes mellitus with diabetic chronic kidney disease; F32.9 Major depressive disorder, single episode, unspecified; I95.9 Hypotension, unspecified; G89.29 Other chronic pain; M54.9 Dorsalgia, unspecified; G30.9 Alzheimer's disease, unspecified; F02.80 Dementia in other diseases classified elsewhere, unspecified severity, without behavioral disturbance, psychotic disturbance, mood disturbance, and anxiety; Z99.2 Dependence on renal dialysis; Z68.23 Body mass index [BMI] 23.0-23.9, adult; Z88.6 Allergy status to analgesic agent; Z79.899 Other long term (current) drug therapy
CPT/HCPCS: 36415; 70450-TC; 71010; 80053; 81000-TC; 82150-TC; 82962; 83605; 83690-TC; 84484; 85025; 86886; 86900; 86901; 86920; 87081; 87086; 87210-TC; 90935; 90937; 93005; 93971; 97110-GP; 97116-GP; 97530-GP; J0696; J0713; J1170; J1200; J2060; J2405; J3490; J7030; J7050; J7060; P9021; Q0163

== ENCOUNTER 2016-12-04 22:52 | Inpatient (IN) | payer OTHER, MEDICAID ==
[~2016-12-04] VITALS: Ht 182.9 cm; Wt 84.4 kg
[~2016-12-04 22:52] MED LIST changes: +ASCO500T20 PO; -DULR10 RC; +SSNOVOLOG SUBCUT
[2016-12-04 23:00] VITALS: BP_SYST 128
[2016-12-04] MEDS ORDERED: FOLI0.8T2 PO (23:31)
[2016-12-04] MEDS ORDERED: AMI200 PO (23:31)
[2016-12-04] MEDS ORDERED: MEGE40TA PO (23:31)
[2016-12-04] MEDS ORDERED: PRO40 PO (23:31)
[2016-12-04] MEDS ORDERED: DONE5TAB3 PO (23:31)
[2016-12-04] MEDS ORDERED: MIDO5TAB20 PO (23:31)
[2016-12-04] MEDS ORDERED: AMIN30LI2 PO (23:31)
[2016-12-04] MEDS ORDERED: ZIN220 PO (23:31)
[2016-12-04] MEDS ORDERED: MEMA5TAB PO (23:31)
[2016-12-04] MEDS ORDERED: MULT-1189 PO (23:31)
[2016-12-04] MEDS ORDERED: INSU100V7 SUBCUT (23:31)
[2016-12-05] LABS: BASOPHILS % (AUTO) 0.3 % (0.0-2.0); EOSINOPHILS # (AUTO) 0.2 K/uL (0.0-0.4); EOSINOPHILS % (AUTO) 2.3 % (0.0-4.0); HEMATOCRIT 23.4 % (36-54); HEMOGLOBIN 7.8 g/dL (14.0-18.0); LYMPHOCYTES # (AUTO) 0.7 K/uL (1.0-5.5); MEAN CORPUSCULAR HEMOGLOBIN 33 pg (27-31); MEAN CORPUSCULAR HGB CONC 33 % (32-36); MEAN CORPUSCULAR VOLUME 98 fL (79.0-98.0); MONOCYTES # (AUTO) 0.5 K/uL (0.0-1.0); MONOCYTES % (AUTO) 8.3 % (1.7-9.3); NEUTROPHILS # (AUTO) 5.1 K/uL (1.8-7.7); NEUTROPHILS % (AUTO) 78.1 % (40.0-70.0); PLATELET COUNT (AUTO) 194 K/uL (130-430); RED CELL DISTRIBUTION WIDTH 18.5 % (9.0-15.0); WHITE BLOOD COUNT (AUTO) 6.5 K/uL (4.8-10.8)
[2016-12-05 00:14] LABS: ANION GAP 5 (5-15); CALCIUM 8.9 mg/dL (8.4-11.0); CHLORIDE 104 mmol/L (98-107); CREATININE 4.08 mg/dL (0.55-1.30); GLUCOSE 138 mg/dL (70-99); POTASSIUM 4.2 mmol/L (3.5-5.1); SODIUM SERUM 137 mmol/L (136-145); UREA NITROGEN, BLOOD 51 mg/dL (8-21)
[2016-12-05 00:17] LABS: INR 1.1 (0.80-1.20); PROTHROMBIN TIME 11.1 SECS (9.5-12.5)
[2016-12-05 00:20] LABS: ALANINE AMINOTRANSFERASE 27 U/L (12-78); ALBUMIN 2.5 g/dL (3.4-4.8); ASPARTATE AMINOTRANSFERASE 19 U/L (10-37); TOTAL BILIRUBIN 0.3 mg/dL (0.0-1.0)
[2016-12-05 00:29] LABS: BILIRUBIN,URINE NEGATIVE (NEGATIVE); BLOOD, URINE 1+ (NEGATIVE); CLARITY/URINE CLEAR (CLEAR); COLOR,URINE YELLOW (YELLOW); GLUCOSE,URINE NEGATIVE (NEGATIVE); KETONES,URINE NEGATIVE (NEGATIVE); LEUKOCYTE ESTERASE ,URINE 2+ (NEGATIVE); NITRITE, URINE NEGATIVE (NEGATIVE); PROTEIN URINE 2+ (NEGATIVE); UROBILINOGEN,URINE 0.2 (0.2-1.0)
[2016-12-05 00:32] LABS: BACTERIA,URINE MODERATE /HPF (None Seen); WBC,URINE 20-50 /HPF (0-3)
[2016-12-05 00:38] LABS: BARBITURATE, URINE NEGATIVE (NEG <=200); BENZODIAZEPINE, URINE POSITIVE (NEG <=150); CANNABINOID, URINE NEGATIVE (NEG <=50); COCAINE, URINE NEGATIVE (NEG <=150); METHAMPHETAMINES SCREEN,URINE NEGATIVE (NEG <=500); OPIATE, URINE POSITIVE (NEG <=100); PHENCYCLIDINE SCREEN,URINE NEGATIVE (NEG <=25); UR TRICYCLIC ANTIDEPRESSANTS NEGATIVE (NEG <=300); URINE AMPHETAMINE NEGATIVE (NEG <=500); URINE METHADONE NEGATIVE (NEG <=200); URINE OXYCODONE SCREEN NEGATIVE (NEG <=100); URINE PROPOXYPHENE SCREEN NEGATIVE (NEG <=300)
[2016-12-05] MEDS ORDERED: INSULIN REGULAR, HUMAN 100 UNITS/ML, 10 ML VIAL (novoLIN R) SUBCUT PRN (00:45)
[2016-12-05] MEDS ORDERED: cefTRIAXone 2 GM VIAL ONE ×2 (01:28)
[2016-12-05 01:44] VITALS: BP_SYST 144
[2016-12-05 03:30] VITALS: BP_SYST 132
[2016-12-05] MEDS ORDERED: cloNIDine HCL 0.1 MG TABLET PO PRN (06:45)
[2016-12-05 07:58] VITALS: BP_SYST 157
[2016-12-05] MEDS: HYDROCORTISONE ACETATE 1 SUPP (ANUSOL HC) RC SCH ×2 (09:00→20:18)
[2016-12-05] MEDS ORDERED: HYDROCORTISONE ACETATE 1 SUPP (ANUSOL HC) RC ONE (11:30)
[2016-12-05 11:48] VITALS: BP_SYST 132
[2016-12-05] MEDS: LEVOFLOXACIN 500 MG/D5W 100 ML IV ONE ×2 (15:00→20:08)
[2016-12-05] MEDS ORDERED: DIPHENHYDRAMINE HCL 25 MG CAPSULE PO PRN (15:00)
[2016-12-05] MEDS ORDERED: ACETAMINOPHEN 325 MG TABLET PO PRN (15:00)
[2016-12-05] MEDS: MIDODRINE HCL 5 MG TABLET (PROAMATINE) PO SCH ×2 (15:00→20:18)
[2016-12-05 16:10] LABS: BASOPHILS % (AUTO) 0.7 % (0.0-2.0); EOSINOPHILS # (AUTO) 0.1 K/uL (0.0-0.4); EOSINOPHILS % (AUTO) 2.5 % (0.0-4.0); HEMATOCRIT 28.4 % (36-54); HEMOGLOBIN 9.2 g/dL (14.0-18.0); LYMPHOCYTES # (AUTO) 0.6 K/uL (1.0-5.5); LYMPHOCYTES % (AUTO) 11.4 % (20.5-51.5); MEAN CORPUSCULAR HEMOGLOBIN 31 pg (27-31); MEAN CORPUSCULAR HGB CONC 32 % (32-36); MONOCYTES # (AUTO) 0.4 K/uL (0.0-1.0); MONOCYTES % (AUTO) 6.8 % (1.7-9.3); NEUTROPHILS # (AUTO) 4.3 K/uL (1.8-7.7); NEUTROPHILS % (AUTO) 78.6 % (40.0-70.0); PLATELET COUNT (AUTO) 182 K/uL (130-430); RED BLOOD CELL COUNT(AUTO) 2.97 MIL/uL (4.2-6.2); RED CELL DISTRIBUTION WIDTH 18.9 % (9.0-15.0); WHITE BLOOD COUNT (AUTO) 5.4 K/uL (4.8-10.8)
[2016-12-05 16:18] LABS: MEAN CORPUSCULAR VOLUME 96 fL (79.0-98.0)
[2016-12-05 16:47] VITALS: BP_SYST 159
[2016-12-05] MEDS ORDERED: ACETAMINOPHEN 500 MG TABLET PO SCH (18:00)
[2016-12-05] MEDS: cefTRIAXone 1 GM in D5W 50 ML IV SCH (18:54)
[2016-12-05 20:11] VITALS: BP_SYST 109
[2016-12-05] MEDS: AMIODARONE HCL 200 MG TABLET PO SCH (20:18)
[2016-12-05] MEDS: MEGESTROL ACETATE 40 MG TABLET PO SCH (20:18)
[2016-12-05] MEDS ORDERED: DONEPEZIL HCL 5 MG TABLET (ARICEPT) PO SCH (21:00)
[2016-12-05] MEDS ORDERED: NON-FORMULARY MEDICATION (Amino Acids/Protein Hydrolys (Pro-Stat Liquid) 30 ML) PO SCH (21:00)
[2016-12-05] MEDS ORDERED: MEMANTINE HCL 5 MG TABLET PO SCH (21:00)
[2016-12-05] MEDS: LORazepam 2 MG/ML VIAL IV PRN (22:18)
[2016-12-06] MEDS: HYDROcodone/ACETAMIN 5-325 MG TAB (NORCO/ VICODIN) PO PRN ×2 (00:21→11:35)
[2016-12-06 00:57] VITALS: BP_SYST 94
[2016-12-06 04:07] VITALS: BP_SYST 142
[2016-12-06] MEDS: LORazepam 2 MG/ML VIAL IV PRN ×2 (04:47→12:34)
[2016-12-06 05:58] LABS: EOSINOPHILS # (AUTO) 0.1 K/uL (0.0-0.4); LYMPHOCYTES # (AUTO) 0.6 K/uL (1.0-5.5)
[2016-12-06 06:41] LABS: ALANINE AMINOTRANSFERASE 27 U/L (12-78); ALBUMIN 2.6 g/dL (3.4-4.8); ANION GAP 10 (5-15); ASPARTATE AMINOTRANSFERASE 19 U/L (10-37); CALCIUM 8.8 mg/dL (8.4-11.0); CHLORIDE 101 mmol/L (98-107); CREATININE 4.01 mg/dL (0.55-1.30); GLUCOSE 125 mg/dL (70-99); POTASSIUM 4.2 mmol/L (3.5-5.1); SODIUM SERUM 136 mmol/L (136-145); TOTAL BILIRUBIN 0.3 mg/dL (0.0-1.0); UREA NITROGEN, BLOOD 52 mg/dL (8-21)
[2016-12-06 06:47] LABS: BASOPHILS % (AUTO) 0.3 % (0.0-2.0); EOSINOPHILS % (AUTO) 1.8 % (0.0-4.0); HEMATOCRIT 26.3 % (36-54); HEMOGLOBIN 8.5 g/dL (14.0-18.0); LYMPHOCYTES % (AUTO) 10.4 % (20.5-51.5); MEAN CORPUSCULAR HEMOGLOBIN 31 pg (27-31); MEAN CORPUSCULAR HGB CONC 32 % (32-36); MEAN CORPUSCULAR VOLUME 96 fL (79.0-98.0); MONOCYTES # (AUTO) 0.4 K/uL (0.0-1.0); MONOCYTES % (AUTO) 7.5 % (1.7-9.3); NEUTROPHILS # (AUTO) 4.7 K/uL (1.8-7.7); PLATELET COUNT (AUTO) 173 K/uL (130-430); RED BLOOD CELL COUNT(AUTO) 2.75 MIL/uL (4.2-6.2); WHITE BLOOD COUNT (AUTO) 5.8 K/uL (4.8-10.8)
[2016-12-06] MEDS ORDERED: FAMOTIDINE 20 MG TABLET PO SCH (07:00)
[2016-12-06 07:45] VITALS: BP_SYST 149
[2016-12-06] MEDS: HYDROCORTISONE ACETATE 1 SUPP (ANUSOL HC) RC SCH (08:57)
[2016-12-06] MEDS: MIDODRINE HCL 5 MG TABLET (PROAMATINE) PO SCH ×2 (08:57→15:54)
[2016-12-06] MEDS: MEGESTROL ACETATE 40 MG TABLET PO SCH (08:58)
[2016-12-06] MEDS: AMIODARONE HCL 200 MG TABLET PO SCH (08:58)
[2016-12-06] MEDS ORDERED: PANTOPRAZOLE SODIUM 40 MG TAB PO SCH (09:00)
[2016-12-06] MEDS ORDERED: MULTIVITS,CA,MINERALS/IRON/FA 1 TABLET PO SCH (09:00)
[2016-12-06] MEDS ORDERED: NEPHROVITE, (FOLIC ACID/VITAMIN B COMP W-C 1 TAB) PO SCH ×2 (09:00)
[2016-12-06] MEDS ORDERED: ASCORBIC ACID 500 MG TABLET PO SCH (09:00)
[2016-12-06 12:15] VITALS: BP_SYST 155
[2016-12-06] MEDS: cefTRIAXone 1 GM in D5W 50 ML IV SCH (15:54)
[2016-12-06 16:04] VITALS: BP_SYST 110
[2016-12-06 16:14] VITALS: BP_SYST 138
[2016-12-07] MEDS ORDERED: AMIODARONE HCL 200 MG TABLET PO SCH (09:00)
== END 2016-12-06 17:30 | DRG 291 ==
LOC: SED 22:52 → SMU 12-05 00:40 → STU 12-05 15:26
PROVIDERS: ADMIT Internal Medicine; ATTEND Internal Medicine
PROC: 30233N1 Transfusion of Nonautologous Red Blood Cells into Peripheral Vein, Percutaneous Approach (ICD-10-PCS; principal; 2016-12-05)
DX: I13.2 Hypertensive heart and chronic kidney disease with heart failure and with stage 5 chronic kidney disease, or end stage renal disease (principal); N18.6 End stage renal disease; F03.90 Unspecified dementia, unspecified severity, without behavioral disturbance, psychotic disturbance, mood disturbance, and anxiety; N39.0 Urinary tract infection, site not specified; D53.9 Nutritional anemia, unspecified; E11.22 Type 2 diabetes mellitus with diabetic chronic kidney disease; I45.81 Long QT syndrome; R07.89 Other chest pain; J44.9 Chronic obstructive pulmonary disease, unspecified; I35.0 Nonrheumatic aortic (valve) stenosis; R00.1 Bradycardia, unspecified; I25.10 Atherosclerotic heart disease of native coronary artery without angina pectoris; I50.9 Heart failure, unspecified; D63.8 Anemia in other chronic diseases classified elsewhere; Z96.649 Presence of unspecified artificial hip joint; E78.5 Hyperlipidemia, unspecified; I48.0 Paroxysmal atrial fibrillation; Z99.2 Dependence on renal dialysis; Z90.49 Acquired absence of other specified parts of digestive tract; Z87.891 Personal history of nicotine dependence; Z88.8 Allergy status to other drugs, medicaments and biological substances; Z74.01 Bed confinement status; Z79.899 Other long term (current) drug therapy; Z87.440 Personal history of urinary (tract) infections; Z99.3 Dependence on wheelchair; D64.9 Anemia, unspecified
CPT/HCPCS: 36415; 70450-TC; 71010; 80053; 80307; 81000-TC; 82550-TC; 82962; 84484; 85025; 85610-TC; 85730-TC; 86886; 86900; 86901; 86920; 87081; 87086; 90935; 93005; 93306; 96365; 99285; J0696; J1815; J1956; J2060; J7050; J7060; P9021

== ENCOUNTER 2016-12-15 23:08 | Inpatient (IN) | payer OTHER, MEDICAID ==
[~2016-12-15] VITALS: Ht 185.4 cm; Wt 87.5 kg
[2016-12-15 23:08] VITALS: BP_SYST 153
[~2016-12-15 23:08] MED LIST changes: +AMI200 PO; +AMIN30LI2 PO; +DONE5TAB3 PO; +INSU100V7 SUBCUT; +MEGE40TA PO; +MEMA5TAB PO; +MIDO5TAB20 PO; +MULT-1189 PO; +PRO40 PO; +ZIN220 PO
[2016-12-15 23:55] LABS: BILIRUBIN,URINE NEGATIVE (NEGATIVE); BLOOD, URINE 3+ (NEGATIVE); CLARITY/URINE CLOUDY (CLEAR); COLOR,URINE YELLOW (YELLOW); GLUCOSE,URINE NEGATIVE (NEGATIVE); KETONES,URINE NEGATIVE (NEGATIVE); LEUKOCYTE ESTERASE ,URINE 3+ (NEGATIVE); NITRITE, URINE POSITIVE (NEGATIVE); PH,URINE 6.5 (5.0-8.0); PROTEIN URINE 2+ (NEGATIVE); UROBILINOGEN,URINE 0.2 (0.2-1.0)
[2016-12-16] LABS: BASOPHILS % (AUTO) 0.3 % (0.0-2.0); EOSINOPHILS % (AUTO) 0.2 % (0.0-4.0); HEMATOCRIT 23.2 % (36-54); HEMOGLOBIN 7.9 g/dL (14.0-18.0); LYMPHOCYTES # (AUTO) 0.7 K/uL (1.0-5.5); LYMPHOCYTES % (AUTO) 7.8 % (20.5-51.5); MEAN CORPUSCULAR HEMOGLOBIN 32 pg (27-31); MEAN CORPUSCULAR HGB CONC 34 % (32-36); MEAN CORPUSCULAR VOLUME 95 fL (79.0-98.0); MONOCYTES # (AUTO) 0.9 K/uL (0.0-1.0); MONOCYTES % (AUTO) 9.6 % (1.7-9.3); NEUTROPHILS # (AUTO) 7.9 K/uL (1.8-7.7); NEUTROPHILS % (AUTO) 82.1 % (40.0-70.0); PLATELET COUNT (AUTO) 229 K/uL (130-430); RED BLOOD CELL COUNT(AUTO) 2.44 MIL/uL (4.2-6.2); RED CELL DISTRIBUTION WIDTH 18.7 % (9.0-15.0); WHITE BLOOD COUNT (AUTO) 9.5 K/uL (4.8-10.8)
[2016-12-16 00:01] LABS: BACTERIA,URINE FEW /HPF (None Seen); RBC,URINE >100 /HPF (0-3); WBC,URINE >100 /HPF (0-3)
[2016-12-16 00:07] LABS: ALANINE AMINOTRANSFERASE 31 U/L (12-78); ALBUMIN 2.4 g/dL (3.4-4.8); ANION GAP 9 (5-15); ASPARTATE AMINOTRANSFERASE 21 U/L (10-37); CALCIUM 9.3 mg/dL (8.4-11.0); CHLORIDE 104 mmol/L (98-107); CREATININE 4.47 mg/dL (0.55-1.30); GLUCOSE 172 mg/dL (70-99); POTASSIUM 4.4 mmol/L (3.5-5.1); SODIUM SERUM 141 mmol/L (136-145); TOTAL BILIRUBIN 0.5 mg/dL (0.0-1.0); UREA NITROGEN, BLOOD 56 mg/dL (8-21)
[2016-12-16] MEDS ORDERED: LIDP TP (01:30)
[2016-12-16] MEDS ORDERED: LEVO250T20 PO (01:30)
[2016-12-16] MEDS ORDERED: DONE10TA44 PO (01:30)
[2016-12-16] MEDS ORDERED: LORA-258 PO (01:44)
[2016-12-16] MEDS ORDERED: ACETAMINOPHEN 325 MG TABLET PO PRN (01:45)
[2016-12-16] MEDS ORDERED: ZOSYN (PIPERACILLIN/TAZO) 2.25 GM in DEX-ISO (50ml) IV ONE (02:30)
[2016-12-16 02:40] VITALS: BP_SYST 99
[2016-12-16] MEDS ORDERED: PIPERACILLIN/TAZOBACTAM 2.25 GM VIAL IV ONE (03:03)
[2016-12-16] MEDS: ZOSYN (PIPERACILLIN/TAZO) 2.25 GM in DEX-ISO (50ml) IV SCH ×3 (05:18→22:49)
[2016-12-16] MEDS ORDERED: FLU VACC QS 2017-18(36MOS+)/PF 0.5 ML/SYR SYRINGE I.M. PRN (05:30)
[2016-12-16 05:34] VITALS: BP_SYST 94
[2016-12-16] MEDS: INSULIN REGULAR, HUMAN 100 UNITS/ML, 10 ML VIAL (novoLIN R) SUBCUT PRN (06:24)
[2016-12-16 08:53] VITALS: BP_SYST 70
[2016-12-16] MEDS: VANCOMYCIN HCL 1,250 MG in NS 250 ML IV SCH (12:54)
[2016-12-16 13:38] VITALS: BP_SYST 92
[2016-12-16 16:56] VITALS: BP_SYST 100
[2016-12-16] MEDS: MORPHINE 4 MG/ML INJ. SYRINGE IVP PRN (19:13)
[2016-12-16 20:00] VITALS: BP_SYST 104
[2016-12-17] VITALS (8 sets, daily range): BP systolic 101–166
[2016-12-17] MEDS: ZOSYN (PIPERACILLIN/TAZO) 2.25 GM in DEX-ISO (50ml) IV SCH ×3 (05:34→21:28)
[2016-12-17] MEDS: MORPHINE 2 MG/ML INJ. SYRINGE IVP PRN (07:43)
[2016-12-17] MEDS: MORPHINE 4 MG/ML INJ. SYRINGE IVP PRN ×2 (08:30→12:50)
[2016-12-17] MEDS: ACETAMINOPHEN 325 MG TABLET PO PRN ×2 (10:06→18:11)
[2016-12-17] MEDS: INSULIN REGULAR, HUMAN 100 UNITS/ML, 10 ML VIAL (novoLIN R) SUBCUT PRN (11:46)
[2016-12-17] MEDS ORDERED: LIDOCAINE MPF 1% 50 MG/5 ML AMP INJ ONE (14:30)
[2016-12-18 00:41] VITALS: BP_SYST 128
[2016-12-18] MEDS: MORPHINE 2 MG/ML INJ. SYRINGE IVP PRN (02:15)
[2016-12-18 04:06] VITALS: BP_SYST 97
[2016-12-18] MEDS: ZOSYN (PIPERACILLIN/TAZO) 2.25 GM in DEX-ISO (50ml) IV SCH ×2 (05:45→15:45)
[2016-12-18 06:51] LABS: ALANINE AMINOTRANSFERASE 26 U/L (12-78); ALBUMIN 2.1 g/dL (3.4-4.8); ANION GAP 9 (5-15); ASPARTATE AMINOTRANSFERASE 20 U/L (10-37); CALCIUM 9.1 mg/dL (8.4-11.0); CHLORIDE 101 mmol/L (98-107); CREATININE 5.54 mg/dL (0.55-1.30); GLUCOSE 144 mg/dL (70-99); SODIUM SERUM 138 mmol/L (136-145); TOTAL BILIRUBIN 0.4 mg/dL (0.0-1.0); UREA NITROGEN, BLOOD 65 mg/dL (8-21)
[2016-12-18 08:20] VITALS: BP_SYST 144
[2016-12-18 08:41] LABS: BASOPHILS % (AUTO) 0.3 % (0.0-2.0); EOSINOPHILS # (AUTO) 0.1 K/uL (0.0-0.4); EOSINOPHILS % (AUTO) 2.4 % (0.0-4.0); HEMATOCRIT 22.9 % (36-54); HEMOGLOBIN 7.6 g/dL (14.0-18.0); LYMPHOCYTES # (AUTO) 0.7 K/uL (1.0-5.5); LYMPHOCYTES % (AUTO) 14.7 % (20.5-51.5); MEAN CORPUSCULAR HEMOGLOBIN 32 pg (27-31); MEAN CORPUSCULAR HGB CONC 33 % (32-36); MEAN CORPUSCULAR VOLUME 95 fL (79.0-98.0); MONOCYTES # (AUTO) 0.4 K/uL (0.0-1.0); MONOCYTES % (AUTO) 9.3 % (1.7-9.3); NEUTROPHILS # (AUTO) 3.4 K/uL (1.8-7.7); NEUTROPHILS % (AUTO) 73.3 % (40.0-70.0); PLATELET COUNT (AUTO) 226 K/uL (130-430); RED BLOOD CELL COUNT(AUTO) 2.41 MIL/uL (4.2-6.2); RED CELL DISTRIBUTION WIDTH 18.4 % (9.0-15.0); WHITE BLOOD COUNT (AUTO) 4.6 K/uL (4.8-10.8)
[2016-12-18 08:56] LABS: ANION GAP 9 (5-15); CALCIUM 9.3 mg/dL (8.4-11.0); CHLORIDE 101 mmol/L (98-107); CREATININE 5.55 mg/dL (0.55-1.30); GLUCOSE 135 mg/dL (70-99); SODIUM SERUM 138 mmol/L (136-145); UREA NITROGEN, BLOOD 68 mg/dL (8-21)
[2016-12-18] MEDS: MORPHINE 4 MG/ML INJ. SYRINGE IVP PRN ×2 (09:07→21:28)
[2016-12-18] MEDS: VANCOMYCIN HCL 1,250 MG in NS 250 ML IV SCH (11:39)
[2016-12-18 12:00] VITALS: BP_SYST 105
[2016-12-18 18:05] VITALS: BP_SYST 128
[2016-12-18] MEDS ORDERED: AMPICILLIN SODIUM/SULBACTAM NA 1.5 GM in NS 50 ML IV SCH (18:30)
[2016-12-18 20:00] VITALS: BP_SYST 129
[2016-12-19 00:03] VITALS: BP_SYST 114
[2016-12-19 02:17] VITALS: BP_SYST 141
[2016-12-19] MEDS: MORPHINE 2 MG/ML INJ. SYRINGE IVP PRN ×2 (05:06→09:59)
[2016-12-19 08:17] VITALS: BP_SYST 139
[2016-12-19] MEDS: AMPICILLIN SODIUM/SULBACTAM NA 1.5 GM in NS 50 ML IV SCH ×2 (09:59→22:21)
[2016-12-19 11:30] VITALS: BP_SYST 135
[2016-12-19] MEDS ORDERED: *LOVENOX 1MG/KG Q12H/PHARMACY XX ONE (12:30)
[2016-12-19] MEDS ORDERED: traMADol HCL HCL 50 MG TABLET (ULTRAM) PO SCH (12:45)
[2016-12-19] MEDS: MORPHINE 4 MG/ML INJ. SYRINGE IVP PRN ×3 (13:38→22:16)
[2016-12-19] MEDS ORDERED: HEPARIN SODIUM,PORCINE 5000 UNITS/ML VIAL ONE (13:53)
[2016-12-19] MEDS ORDERED: HEPARIN SODIUM,PORCINE 5000 UNITS/ML VIAL IV ONE (14:00)
[2016-12-19] MEDS ORDERED: HEPARIN SODIUM,PORCINE 5000 UNITS/ML VIAL MC ONE (14:15)
[2016-12-19] MEDS: traMADol HCL HCL 50 MG TABLET (ULTRAM) PO PRN (14:28)
[2016-12-19] MEDS: INSULIN REGULAR, HUMAN 100 UNITS/ML, 10 ML VIAL (novoLIN R) SUBCUT PRN (14:56)
[2016-12-19 16:19] VITALS: BP_SYST 98
[2016-12-19] MEDS: ENOXAPARIN SODIUM 80 MG/0.8 ML SYRINGE SUBCUT SCH (16:33)
[2016-12-20] MEDS: INSULIN REGULAR, HUMAN 100 UNITS/ML, 10 ML VIAL (novoLIN R) SUBCUT PRN (01:01)
[2016-12-20 01:08] VITALS: BP_SYST 105
[2016-12-20] MEDS: MORPHINE 4 MG/ML INJ. SYRINGE IVP PRN ×2 (02:58→19:02)
[2016-12-20 04:00] VITALS: BP_SYST 127
[2016-12-20 07:34] LABS: BASOPHILS % (AUTO) 0.6 % (0.0-2.0); EOSINOPHILS # (AUTO) 0.1 K/uL (0.0-0.4); EOSINOPHILS % (AUTO) 2.9 % (0.0-4.0); HEMOGLOBIN 7.8 g/dL (14.0-18.0); LYMPHOCYTES # (AUTO) 0.8 K/uL (1.0-5.5); LYMPHOCYTES % (AUTO) 17.7 % (20.5-51.5); MEAN CORPUSCULAR HEMOGLOBIN 32 pg (27-31); MEAN CORPUSCULAR HGB CONC 34 % (32-36); MEAN CORPUSCULAR VOLUME 95 fL (79.0-98.0); MONOCYTES # (AUTO) 0.6 K/uL (0.0-1.0); MONOCYTES % (AUTO) 12.2 % (1.7-9.3); NEUTROPHILS # (AUTO) 3.1 K/uL (1.8-7.7); NEUTROPHILS % (AUTO) 66.6 % (40.0-70.0); PLATELET COUNT (AUTO) 268 K/uL (130-430); RED BLOOD CELL COUNT(AUTO) 2.44 MIL/uL (4.2-6.2); WHITE BLOOD COUNT (AUTO) 4.6 K/uL (4.8-10.8)
[2016-12-20] MEDS: AMPICILLIN SODIUM/SULBACTAM NA 1.5 GM in NS 50 ML IV SCH ×2 (10:42→21:17)
[2016-12-20 11:06] LABS: ALANINE AMINOTRANSFERASE 22 U/L (12-78); ANION GAP 11 (5-15); ASPARTATE AMINOTRANSFERASE 18 U/L (10-37); CALCIUM 8.7 mg/dL (8.4-11.0); CHLORIDE 101 mmol/L (98-107); CREATININE 5.75 mg/dL (0.55-1.30); GLUCOSE 110 mg/dL (70-99); POTASSIUM 3.8 mmol/L (3.5-5.1); SODIUM SERUM 139 mmol/L (136-145); TOTAL BILIRUBIN 0.4 mg/dL (0.0-1.0); UREA NITROGEN, BLOOD 65 mg/dL (8-21)
[2016-12-20 12:36] VITALS: BP_SYST 141
[2016-12-20] MEDS: VANCOMYCIN HCL 1,250 MG in NS 250 ML IV SCH (13:23)
[2016-12-20 16:45] VITALS: BP_SYST 144
[2016-12-20] MEDS: ENOXAPARIN SODIUM 80 MG/0.8 ML SYRINGE SUBCUT SCH (17:00)
[2016-12-20 19:40] VITALS: BP_SYST 113
[2016-12-20] MEDS: traMADol HCL HCL 50 MG TABLET (ULTRAM) PO PRN (21:28)
[2016-12-21 01:27] VITALS: BP_SYST 124
[2016-12-21 04:58] VITALS: BP_SYST 170
[2016-12-21] MEDS: traMADol HCL HCL 50 MG TABLET (ULTRAM) PO PRN (05:56)
[2016-12-21 06:15] VITALS: BP_SYST 149
[2016-12-21 07:04] LABS: BASOPHILS % (AUTO) 0.4 % (0.0-2.0); EOSINOPHILS # (AUTO) 0.1 K/uL (0.0-0.4); EOSINOPHILS % (AUTO) 2.6 % (0.0-4.0); HEMATOCRIT 25.9 % (36-54); HEMOGLOBIN 8.4 g/dL (14.0-18.0); LYMPHOCYTES # (AUTO) 0.9 K/uL (1.0-5.5); LYMPHOCYTES % (AUTO) 17.9 % (20.5-51.5); MEAN CORPUSCULAR HEMOGLOBIN 31 pg (27-31); MEAN CORPUSCULAR HGB CONC 33 % (32-36); MEAN CORPUSCULAR VOLUME 94 fL (79.0-98.0); MONOCYTES # (AUTO) 0.5 K/uL (0.0-1.0); MONOCYTES % (AUTO) 9.2 % (1.7-9.3); NEUTROPHILS # (AUTO) 3.6 K/uL (1.8-7.7); NEUTROPHILS % (AUTO) 69.9 % (40.0-70.0); PLATELET COUNT (AUTO) 356 K/uL (130-430); RED BLOOD CELL COUNT(AUTO) 2.75 MIL/uL (4.2-6.2); RED CELL DISTRIBUTION WIDTH 17.3 % (9.0-15.0); WHITE BLOOD COUNT (AUTO) 5.1 K/uL (4.8-10.8)
[2016-12-21 07:21] LABS: ANION GAP 13 (5-15); CALCIUM 8.7 mg/dL (8.4-11.0); CHLORIDE 104 mmol/L (98-107); CREATININE 6.56 mg/dL (0.55-1.30); GLUCOSE 90 mg/dL (70-99); POTASSIUM 4.2 mmol/L (3.5-5.1); SODIUM SERUM 143 mmol/L (136-145); UREA NITROGEN, BLOOD 80 mg/dL (8-21)
[2016-12-21 07:32] LABS: ALANINE AMINOTRANSFERASE 21 U/L (12-78); ALBUMIN 2.1 g/dL (3.4-4.8); ASPARTATE AMINOTRANSFERASE 12 U/L (10-37); TOTAL BILIRUBIN 0.4 mg/dL (0.0-1.0)
[2016-12-21 08:00] VITALS: BP_SYST 147
[2016-12-21 08:17] LABS: TOTAL IRON BIND. CAPACITY 123 ug/dL (250-450)
[2016-12-21] MEDS: AMPICILLIN SODIUM/SULBACTAM NA 1.5 GM in NS 50 ML IV SCH ×2 (08:52→20:20)
[2016-12-21] MEDS: MORPHINE 4 MG/ML INJ. SYRINGE IVP PRN ×2 (08:52→20:19)
[2016-12-21] MEDS: HALOPERIDOL 1 MG TABLET (HALDOL) PO PRN (12:03)
[2016-12-21 12:50] VITALS: BP_SYST 146
[2016-12-21] MEDS: ENOXAPARIN SODIUM 80 MG/0.8 ML SYRINGE SUBCUT SCH (16:03)
[2016-12-21 16:28] VITALS: BP_SYST 138
[2016-12-21] MEDS: EPOETIN ALFA 4,000 UNITS/ML VIAL SUBCUT SCH (18:06)
[2016-12-21] MEDS: SULFAMETHOXAZOLE/TRIMETHOPR DS 1 TABLET PO SCH (20:20)
[2016-12-21] MEDS: QUEtiapine FUMARATE 25 MG TABLET PO SCH (20:20)
[2016-12-22] VITALS: BP_SYST 124
[2016-12-22 04:00] VITALS: BP_SYST 140
[2016-12-22 06:19] LABS: BASOPHILS % (AUTO) 0.7 % (0.0-2.0); EOSINOPHILS # (AUTO) 0.1 K/uL (0.0-0.4); EOSINOPHILS % (AUTO) 2.9 % (0.0-4.0); HEMATOCRIT 25.5 % (36-54); HEMOGLOBIN 8.6 g/dL (14.0-18.0); LYMPHOCYTES # (AUTO) 0.9 K/uL (1.0-5.5); LYMPHOCYTES % (AUTO) 18.6 % (20.5-51.5); MEAN CORPUSCULAR HEMOGLOBIN 32 pg (27-31); MEAN CORPUSCULAR HGB CONC 34 % (32-36); MEAN CORPUSCULAR VOLUME 94 fL (79.0-98.0); MONOCYTES # (AUTO) 0.5 K/uL (0.0-1.0); NEUTROPHILS # (AUTO) 3.1 K/uL (1.8-7.7); NEUTROPHILS % (AUTO) 67.8 % (40.0-70.0); PLATELET COUNT (AUTO) 346 K/uL (130-430); RED BLOOD CELL COUNT(AUTO) 2.72 MIL/uL (4.2-6.2); RED CELL DISTRIBUTION WIDTH 17.2 % (9.0-15.0); WHITE BLOOD COUNT (AUTO) 4.6 K/uL (4.8-10.8)
[2016-12-22 06:34] LABS: ALANINE AMINOTRANSFERASE 20 U/L (12-78); ALBUMIN 2.1 g/dL (3.4-4.8); ANION GAP 12 (5-15); ASPARTATE AMINOTRANSFERASE 13 U/L (10-37); CALCIUM 9.2 mg/dL (8.4-11.0); CHLORIDE 103 mmol/L (98-107); CREATININE 7.44 mg/dL (0.55-1.30); GLUCOSE 115 mg/dL (70-99); PHOSPHORUS 8.6 mg/dL (2.7-4.5); POTASSIUM 4.6 mmol/L (3.5-5.1); SODIUM SERUM 139 mmol/L (136-145); TOTAL BILIRUBIN 0.4 mg/dL (0.0-1.0); UREA NITROGEN, BLOOD 89 mg/dL (8-21)
[2016-12-22 08:00] VITALS: BP_SYST 140
[2016-12-22] MEDS: QUEtiapine FUMARATE 25 MG TABLET PO SCH ×2 (08:36→20:54)
[2016-12-22] MEDS: SULFAMETHOXAZOLE/TRIMETHOPR DS 1 TABLET PO SCH (08:36)
[2016-12-22] MEDS ORDERED: EPOETIN ALFA 4,000 UNITS/ML VIAL SUBCUT SCH (09:00)
[2016-12-22 12:15] LABS: INR 1.1 (0.80-1.20); PROTHROMBIN TIME 11.1 SECS (9.5-12.5)
[2016-12-22] MEDS: AMPICILLIN SODIUM/SULBACTAM NA 1.5 GM in NS 50 ML IV SCH ×2 (12:16→20:31)
[2016-12-22 12:57] VITALS: BP_SYST 146
[2016-12-22] MEDS ORDERED: NS 500 ML BAG IV ONE (13:46)
[2016-12-22] MEDS ORDERED: SEVOFLURANE 15 MIN GAS INH ONE (13:46)
[2016-12-22] MEDS ORDERED: MIDAZOLAM HCL 5 MG/5 ML VIAL IVP ONE (13:46)
[2016-12-22] MEDS ORDERED: PROPOFOL 200MG/ 20ML VIAL (DIPRIVAN) IV ONE (13:46)
[2016-12-22] MEDS ORDERED: NS 1000 ML BAG IV ONE (13:46)
[2016-12-22] MEDS ORDERED: LIDOCAINE/EPI MPF 1%1:200000 30 ML VIAL INJ ONE (13:46)
[2016-12-22] MEDS ORDERED: HEPARIN SODIUM,PORCINE 5000 UNITS/ML VIAL SUBCUT ONE (13:46)
[2016-12-22] MEDS ORDERED: CEFAZOLIN 2 GM IVPB PREMIX 50 ML IV ONE (13:46)
[2016-12-22] MEDS ORDERED: NACL 0.9% 1,000 ML IV SCH (14:19)
[2016-12-22] MEDS ORDERED: HYDROmorphone 1 MG INJ. 1 MG/ML AMPUL IVP PRN (14:30)
[2016-12-22] MEDS ORDERED: ASPIRIN 325 MG TABLET (ECOTRIN) PO ONE (15:45)
[2016-12-22] MEDS: ENOXAPARIN SODIUM 80 MG/0.8 ML SYRINGE SUBCUT SCH (16:15)
[2016-12-22] MEDS ORDERED: GENTAMICIN 120 MG/ ISO-OSM 100 ML PREMIX IV ONE (17:15)
[2016-12-22] MEDS ORDERED: GENTAMICIN 80 MG/ ISO-OSM 100 ML PREMIX IV PRN (17:15)
[2016-12-22 19:30] VITALS: BP_SYST 120
[2016-12-23 01:09] VITALS: BP_SYST 140
[2016-12-23 03:48] VITALS: BP_SYST 109
[2016-12-23] MEDS ORDERED: ASPIRIN 325 MG TABLET (ECOTRIN) PO SCH (09:00)
[2016-12-23] MEDS: AMPICILLIN SODIUM/SULBACTAM NA 1.5 GM in NS 50 ML IV SCH (09:25)
[2016-12-23] MEDS: MORPHINE 2 MG/ML INJ. SYRINGE IVP PRN (10:02)
[2016-12-23] MEDS: QUEtiapine FUMARATE 25 MG TABLET PO SCH (10:39)
[2016-12-23] MEDS: INSULIN REGULAR, HUMAN 100 UNITS/ML, 10 ML VIAL (novoLIN R) SUBCUT PRN (12:25)
[2016-12-23 12:42] VITALS: BP_SYST 137
[2016-12-23] MEDS: HALOPERIDOL 1 MG TABLET (HALDOL) PO PRN (14:09)
[2016-12-23 15:27] VITALS: BP_SYST 108
[2016-12-23] MEDS: EPOETIN ALFA 4,000 UNITS/ML VIAL SUBCUT SCH (15:57)
[2016-12-23] MEDS: ENOXAPARIN SODIUM 80 MG/0.8 ML SYRINGE SUBCUT SCH (15:57)
[2016-12-23 17:03] VITALS: BP_SYST 108
[2016-12-23] MEDS: traMADol HCL HCL 50 MG TABLET (ULTRAM) PO PRN (17:28)
== END 2016-12-23 19:00 | DRG 252 ==
LOC: SED 23:08 → STU 12-16 01:35 → SMU 12-17 11:27 → STU 12-22 18:58
PROVIDERS: ADMIT Internal Medicine Hospice and Palliative Medicine; ATTEND Internal Medicine Hospice and Palliative Medicine
PROC: 06PY03Z Removal of Infusion Device from Lower Vein, Open Approach (ICD-10-PCS; 2016-12-17)
PROC: 5A1D70Z Performance of Urinary Filtration, Intermittent, Less than 6 Hours Per Day (ICD-10-PCS; 2016-12-17)
PROC: 02HV33Z Insertion of Infusion Device into Superior Vena Cava, Percutaneous Approach (ICD-10-PCS; 2016-12-19)
PROC: B548ZZA Ultrasonography of Superior Vena Cava, Guidance (ICD-10-PCS; 2016-12-19)
PROC: 5A1D70Z Performance of Urinary Filtration, Intermittent, Less than 6 Hours Per Day (ICD-10-PCS; 2016-12-19)
PROC: 5A1D70Z Performance of Urinary Filtration, Intermittent, Less than 6 Hours Per Day (ICD-10-PCS; 2016-12-22)
PROC: 041 Lower Arteries, Bypass (ICD-10-PCS; principal; 2016-12-22 12:30)
DX: T82.7XXA Infection and inflammatory reaction due to other cardiac and vascular devices, implants and grafts, initial encounter (principal); G93.41 Metabolic encephalopathy; A41.9 Sepsis, unspecified organism; N18.6 End stage renal disease; I12.0 Hypertensive chronic kidney disease with stage 5 chronic kidney disease or end stage renal disease; N39.0 Urinary tract infection, site not specified; E11.22 Type 2 diabetes mellitus with diabetic chronic kidney disease; F03.90 Unspecified dementia, unspecified severity, without behavioral disturbance, psychotic disturbance, mood disturbance, and anxiety; J44.9 Chronic obstructive pulmonary disease, unspecified; F29 Unspecified psychosis not due to a substance or known physiological condition; D63.1 Anemia in chronic kidney disease; Y83.8 Other surgical procedures as the cause of abnormal reaction of the patient, or of later complication, without mention of misadventure at the time of the procedure; Y92.89 Other specified places as the place of occurrence of the external cause; Z99.2 Dependence on renal dialysis
CPT/HCPCS: 36415; 71010; 80048; 80053; 81000-TC; 82962; 83540-TC; 83550-TC; 83605; 84100-TC; 85025; 85610-TC; 85730-TC; 86886; 86900; 86901; 87040-TC; 87070-TC; 87081; 87086; 87186-TC; 90935; 90937; 93005; 93971; 97110-GP; 97530-GP; 99285; C1751; G0365; J0295; J0690; J0885; J1580; J1644; J1650; J1815; J1956; J2001; J2250; J2270; J2543; J2704; J3370; J7030; J7040; J7050; J7060

== ENCOUNTER 2017-01-21 17:51 | Inpatient (IN) | payer OTHER, MEDICAID ==
[~2017-01-21] VITALS: Ht 188 cm; Wt 87.1 kg
[~2017-01-21 17:51] MED LIST changes: +DONE10TA44 PO; -DONE5TAB3 PO; +LIDP TP; +LORA-258 PO; +NEPH PO
[2017-01-21 17:56] VITALS: BP_SYST 118
[2017-01-21] MEDS ORDERED: FOLI0.8T2 PO (18:05)
[2017-01-21 18:25] LABS: BASOPHILS % (AUTO) 0.4 % (0.0-2.0); EOSINOPHILS # (AUTO) 0.6 K/uL (0.0-0.4); EOSINOPHILS % (AUTO) 7.7 % (0.0-4.0); LYMPHOCYTES # (AUTO) 1.3 K/uL (1.0-5.5); LYMPHOCYTES % (AUTO) 16.3 % (20.5-51.5); MEAN CORPUSCULAR HEMOGLOBIN 31 pg (27-31); MEAN CORPUSCULAR HGB CONC 32 % (32-36); MEAN CORPUSCULAR VOLUME 95 fL (79.0-98.0); MONOCYTES # (AUTO) 0.6 K/uL (0.0-1.0); NEUTROPHILS # (AUTO) 5.5 K/uL (1.8-7.7); NEUTROPHILS % (AUTO) 67.6 % (40.0-70.0); PLATELET COUNT (AUTO) 422 K/uL (130-430); RED BLOOD CELL COUNT(AUTO) 2.18 MIL/uL (4.2-6.2); RED CELL DISTRIBUTION WIDTH 17.5 % (9.0-15.0)
[2017-01-21 18:30] LABS: ANION GAP 11 (5-15); CALCIUM 8.5 mg/dL (8.4-11.0); CHLORIDE 111 mmol/L (98-107); CREATININE 6.66 mg/dL (0.55-1.30); GLUCOSE 181 mg/dL (70-99); POTASSIUM 4.9 mmol/L (3.5-5.1); SODIUM SERUM 144 mmol/L (136-145); UREA NITROGEN, BLOOD 76 mg/dL (8-21)
[2017-01-21 18:34] LABS: INR 1.1 (0.80-1.20); PROTHROMBIN TIME 11.4 SECS (9.5-12.5)
[2017-01-21 18:35] LABS: ALANINE AMINOTRANSFERASE 15 U/L (12-78); ASPARTATE AMINOTRANSFERASE 11 U/L (10-37); TOTAL BILIRUBIN 0.3 mg/dL (0.0-1.0)
[2017-01-21 18:41] LABS: HEMOGLOBIN 6.7 g/dL (14.0-18.0)
[2017-01-21 18:42] LABS: HEMATOCRIT 20.8 % (36-54)
[2017-01-21] MEDS ORDERED: HEPARIN 25,000 UNITS/D5W 250ML 250 ML IV ONE (18:45)
[2017-01-21] MEDS ORDERED: HEPARIN SODIUM,PORCINE 5000 UNITS/ML VIAL IVP ONE (18:45)
[2017-01-21] MEDS ORDERED: COMMUNICATION ORDER XX ONE (19:15)
[2017-01-21] MEDS ORDERED: HEPARIN SODIUM,PORCINE 3000 UNITS/0.6 ML BOLUS IVP PRN (20:00)
[2017-01-21] MEDS ORDERED: HEPARIN SODIUM,PORCINE 2000 UNITS/0.4 ML BOLUS IVP PRN (20:00)
[2017-01-21] MEDS ORDERED: HEPARIN 25,000 UNITS/D5W 250ML 250 ML IV PRN (20:00)
[2017-01-21 20:58] VITALS: BP_SYST 160
[2017-01-21] MEDS ORDERED: ACETAMINOPHEN 325 MG TABLET PO PRN (22:15)
[2017-01-21] MEDS ORDERED: LACTULOSE 20 GM/30 ML UDC PO PRN (22:15)
[2017-01-21] MEDS: OLANZapine 5 MG TABLET PO SCH (22:15)
[2017-01-21] MEDS ORDERED: DEXTROSE 50% JECT 50 ML DISP.SYRIN IVP PRN (22:30)
[2017-01-22 00:50] VITALS: BP_SYST 147
[2017-01-22 04:28] VITALS: BP_SYST 119
[2017-01-22 06:47] LABS: ANION GAP 9 (5-15); CALCIUM 8.8 mg/dL (8.4-11.0); CHLORIDE 109 mmol/L (98-107); CREATININE 6.61 mg/dL (0.55-1.30); GLUCOSE 128 mg/dL (70-99); PHOSPHORUS 5.1 mg/dL (2.7-4.5); POTASSIUM 4.9 mmol/L (3.5-5.1); SODIUM SERUM 142 mmol/L (136-145); UREA NITROGEN, BLOOD 75 mg/dL (8-21)
[2017-01-22 07:00] LABS: BASOPHILS % (AUTO) 0.4 % (0.0-2.0); EOSINOPHILS # (AUTO) 0.8 K/uL (0.0-0.4); EOSINOPHILS % (AUTO) 9.2 % (0.0-4.0); HEMATOCRIT 22.9 % (36-54); HEMOGLOBIN 7.3 g/dL (14.0-18.0); LYMPHOCYTES # (AUTO) 1.6 K/uL (1.0-5.5); LYMPHOCYTES % (AUTO) 19.1 % (20.5-51.5); MEAN CORPUSCULAR HEMOGLOBIN 31 pg (27-31); MEAN CORPUSCULAR HGB CONC 32 % (32-36); MEAN CORPUSCULAR VOLUME 97 fL (79.0-98.0); MONOCYTES # (AUTO) 0.6 K/uL (0.0-1.0); MONOCYTES % (AUTO) 7.8 % (1.7-9.3); NEUTROPHILS # (AUTO) 5.2 K/uL (1.8-7.7); NEUTROPHILS % (AUTO) 63.5 % (40.0-70.0); PLATELET COUNT (AUTO) 469 K/uL (130-430); RED BLOOD CELL COUNT(AUTO) 2.37 MIL/uL (4.2-6.2); RED CELL DISTRIBUTION WIDTH 17.4 % (9.0-15.0); WHITE BLOOD COUNT (AUTO) 8.2 K/uL (4.8-10.8)
[2017-01-22 07:03] LABS: TOTAL IRON BIND. CAPACITY 168 ug/dL (250-450)
[2017-01-22 07:57] VITALS: BP_SYST 163
[2017-01-22] MEDS: HYDROcodone/ACETAMIN 5-325 MG TAB (NORCO/ VICODIN) PO PRN (11:00)
[2017-01-22] MEDS: AMIODARONE HCL 200 MG TABLET PO SCH ×2 (11:00→21:00)
[2017-01-22] MEDS: NEPHROVITE, (FOLIC ACID/VITAMIN B COMP W-C 1 TAB) PO SCH (11:00)
[2017-01-22] MEDS: PANTOPRAZOLE SODIUM 40 MG TAB PO SCH (11:00)
[2017-01-22] MEDS: MEMANTINE HCL 5 MG TABLET PO SCH ×2 (11:01→21:37)
[2017-01-22] MEDS: OLANZapine 5 MG TABLET PO SCH ×2 (11:01→21:38)
[2017-01-22] MEDS: DIPHENHYDRAMINE INJ 50 MG/ML VIAL IVP PRN (12:50)
[2017-01-22 12:56] VITALS: BP_SYST 174
[2017-01-22] MEDS: LORazepam 2 MG/ML VIAL IVP PRN ×2 (13:31→18:41)
[2017-01-22] MEDS: HALOPERIDOL LACTATE 5 MG/ML VIAL IM PRN (15:34)
[2017-01-22 16:40] VITALS: BP_SYST 117
[2017-01-22 20:21] VITALS: BP_SYST 110
[2017-01-22] MEDS: DONEPEZIL HCL 5 MG TABLET (ARICEPT) PO SCH (21:38)
[2017-01-23] VITALS: BP_SYST 129
[2017-01-23] MEDS: DIPHENHYDRAMINE INJ 50 MG/ML VIAL IVP PRN ×2 (04:28→13:01)
[2017-01-23 04:30] VITALS: BP_SYST 121
[2017-01-23 05:13] LABS: BILIRUBIN,URINE NEGATIVE (NEGATIVE); BLOOD, URINE NEGATIVE (NEGATIVE); CLARITY/URINE CLEAR (CLEAR); COLOR,URINE YELLOW (YELLOW); GLUCOSE,URINE NEGATIVE (NEGATIVE); KETONES,URINE NEGATIVE (NEGATIVE); LEUKOCYTE ESTERASE ,URINE 1+ (NEGATIVE); NITRITE, URINE NEGATIVE (NEGATIVE); PH,URINE 6.5 (5.0-8.0); PROTEIN URINE 2+ (NEGATIVE); UROBILINOGEN,URINE 0.2 (0.2-1.0)
[2017-01-23] MEDS: LORazepam 2 MG/ML VIAL IVP PRN (05:13)
[2017-01-23 05:20] LABS: BACTERIA,URINE MODERATE /HPF (None Seen); WBC,URINE 20-50 /HPF (0-3)
[2017-01-23 07:13] LABS: BASOPHILS % (AUTO) 0.5 % (0.0-2.0); EOSINOPHILS # (AUTO) 0.6 K/uL (0.0-0.4); EOSINOPHILS % (AUTO) 8.9 % (0.0-4.0); HEMATOCRIT 23.1 % (36-54); HEMOGLOBIN 7.5 g/dL (14.0-18.0); LYMPHOCYTES # (AUTO) 1.2 K/uL (1.0-5.5); LYMPHOCYTES % (AUTO) 17.5 % (20.5-51.5); MEAN CORPUSCULAR HEMOGLOBIN 31 pg (27-31); MEAN CORPUSCULAR HGB CONC 32 % (32-36); MEAN CORPUSCULAR VOLUME 95 fL (79.0-98.0); MONOCYTES # (AUTO) 0.6 K/uL (0.0-1.0); MONOCYTES % (AUTO) 8.9 % (1.7-9.3); NEUTROPHILS # (AUTO) 4.7 K/uL (1.8-7.7); NEUTROPHILS % (AUTO) 64.2 % (40.0-70.0); PLATELET COUNT (AUTO) 453 K/uL (130-430); RED BLOOD CELL COUNT(AUTO) 2.44 MIL/uL (4.2-6.2); RED CELL DISTRIBUTION WIDTH 17.6 % (9.0-15.0); WHITE BLOOD COUNT (AUTO) 7.1 K/uL (4.8-10.8)
[2017-01-23 07:27] LABS: ANION GAP 10 (5-15); CALCIUM 9.1 mg/dL (8.4-11.0); CHLORIDE 109 mmol/L (98-107); CREATININE 7.47 mg/dL (0.55-1.30); GLUCOSE 140 mg/dL (70-99); POTASSIUM 5.7 mmol/L (3.5-5.1); SODIUM SERUM 141 mmol/L (136-145); UREA NITROGEN, BLOOD 85 mg/dL (8-21)
[2017-01-23 08:00] VITALS: BP_SYST 172
[2017-01-23] MEDS: AMIODARONE HCL 200 MG TABLET PO SCH ×2 (09:00→21:31)
[2017-01-23] MEDS ORDERED: NACL 0.9% 1,000 ML IV SCH (10:36)
[2017-01-23] MEDS ORDERED: ePHEDrine sulfate 50 MG/ML VIAL IVP PRN (10:45)
[2017-01-23] MEDS ORDERED: ACETAMINOPHEN 500 MG TABLET PO SCH (12:00)
[2017-01-23] MEDS ORDERED: LABETALOL 100 MG/ 20ML VIAL ONE (12:13)
[2017-01-23 12:42] VITALS: BP_SYST 163
[2017-01-23] MEDS ORDERED: LABETALOL 100 MG/ 20ML VIAL IVP PRN (12:45)
[2017-01-23] MEDS: MEMANTINE HCL 5 MG TABLET PO SCH ×2 (13:52→21:30)
[2017-01-23] MEDS: OLANZapine 5 MG TABLET PO SCH ×2 (13:52→21:31)
[2017-01-23] MEDS: NEPHROVITE, (FOLIC ACID/VITAMIN B COMP W-C 1 TAB) PO SCH (13:53)
[2017-01-23] MEDS: PANTOPRAZOLE SODIUM 40 MG TAB PO SCH (13:53)
[2017-01-23] MEDS ORDERED: cloNIDine HCL 0.2 MG TABLET PO PRN (14:00)
[2017-01-23] MEDS: HYDROcodone/ACETAMIN 5-325 MG TAB (NORCO/ VICODIN) PO PRN (14:28)
[2017-01-23] MEDS ORDERED: MIDODRINE HCL 5 MG TABLET (PROAMATINE) PO SCH (15:00)
[2017-01-23 16:17] VITALS: BP_SYST 163
[2017-01-23] MEDS: INSULIN REGULAR, HUMAN 100 UNITS/ML, 10 ML VIAL (novoLIN R) SUBCUT PRN ×2 (17:17→21:33)
[2017-01-23] MEDS ORDERED: FAMOTIDINE 20 MG TABLET PO SCH (18:00)
[2017-01-23] MEDS: HALOPERIDOL LACTATE 5 MG/ML VIAL IM PRN (19:47)
[2017-01-23] MEDS: DIPHENHYDRAMINE HCL 25 MG CAPSULE PO PRN (19:47)
[2017-01-23 20:00] VITALS: BP_SYST 157
[2017-01-23] MEDS: DONEPEZIL HCL 5 MG TABLET (ARICEPT) PO SCH (21:30)
[2017-01-23] MEDS: MEGESTROL ACETATE 40 MG TABLET PO SCH (21:30)
[2017-01-24] VITALS (8 sets, daily range): BP systolic 103–165
[2017-01-24] MEDS: LORazepam 1 MG TABLET PO PRN ×2 (02:59→14:03)
[2017-01-24] MEDS: DIPHENHYDRAMINE HCL 25 MG CAPSULE PO PRN ×2 (02:59→14:03)
[2017-01-24] MEDS: INSULIN REGULAR, HUMAN 100 UNITS/ML, 10 ML VIAL (novoLIN R) SUBCUT PRN ×2 (06:05→11:47)
[2017-01-24 07:03] LABS: BASOPHILS % (AUTO) 0.1 % (0.0-2.0); EOSINOPHILS % (AUTO) 0.1 % (0.0-4.0); HEMATOCRIT 23.9 % (36-54); HEMOGLOBIN 7.7 g/dL (14.0-18.0); LYMPHOCYTES # (AUTO) 0.5 K/uL (1.0-5.5); LYMPHOCYTES % (AUTO) 6.3 % (20.5-51.5); MEAN CORPUSCULAR HEMOGLOBIN 30 pg (27-31); MEAN CORPUSCULAR HGB CONC 33 % (32-36); MEAN CORPUSCULAR VOLUME 94 fL (79.0-98.0); MONOCYTES # (AUTO) 0.3 K/uL (0.0-1.0); MONOCYTES % (AUTO) 4.1 % (1.7-9.3); NEUTROPHILS # (AUTO) 7.7 K/uL (1.8-7.7); NEUTROPHILS % (AUTO) 89.4 % (40.0-70.0); PLATELET COUNT (AUTO) 373 K/uL (130-430); RED BLOOD CELL COUNT(AUTO) 2.55 MIL/uL (4.2-6.2); RED CELL DISTRIBUTION WIDTH 17.1 % (9.0-15.0); WHITE BLOOD COUNT (AUTO) 8.5 K/uL (4.8-10.8)
[2017-01-24 07:11] LABS: ANION GAP 13 (5-15); CALCIUM 8.8 mg/dL (8.4-11.0); CHLORIDE 108 mmol/L (98-107); CREATININE 6.97 mg/dL (0.55-1.30); GLUCOSE 269 mg/dL (70-99); POTASSIUM 5.3 mmol/L (3.5-5.1); SODIUM SERUM 142 mmol/L (136-145); UREA NITROGEN, BLOOD 84 mg/dL (8-21)
[2017-01-24] MEDS ORDERED: ASCORBIC ACID 500 MG TABLET PO SCH (09:00)
[2017-01-24] MEDS ORDERED: NEPHROVITE, (FOLIC ACID/VITAMIN B COMP W-C 1 TAB) PO SCH ×3 (09:00)
[2017-01-24] MEDS: MEMANTINE HCL 5 MG TABLET PO SCH (09:28)
[2017-01-24] MEDS: AMIODARONE HCL 200 MG TABLET PO SCH (09:29)
[2017-01-24] MEDS: MEGESTROL ACETATE 40 MG TABLET PO SCH (09:29)
[2017-01-24] MEDS: HYDROcodone/ACETAMIN 5-325 MG TAB (NORCO/ VICODIN) PO PRN (09:29)
[2017-01-24] MEDS: PANTOPRAZOLE SODIUM 40 MG TAB PO SCH (09:30)
[2017-01-24] MEDS: OLANZapine 5 MG TABLET PO SCH (09:30)
[2017-01-24] MEDS ORDERED: SODIUM POLYSTYRENE SULFONATE 15 GM/60 ML UDBTL PO ONE (12:30)
[2017-01-24] MEDS: HALOPERIDOL LACTATE 5 MG/ML VIAL IM PRN (14:02)
[2017-01-25] MEDS ORDERED: EPOETIN ALFA 10,000 UNITS/ML VIAL SUBCUT SCH (09:00)
== END 2017-01-24 16:10 | DRG 314 ==
LOC: SED 17:51 → STU 19:13
PROVIDERS: ADMIT Internal Medicine; ATTEND Internal Medicine
PROC: B5181ZA Fluoroscopy of Superior Vena Cava using Low Osmolar Contrast, Guidance (ICD-10-PCS; 2017-01-23)
PROC: 5A1D70Z Performance of Urinary Filtration, Intermittent, Less than 6 Hours Per Day (ICD-10-PCS; 2017-01-23)
PROC: 30233N1 Transfusion of Nonautologous Red Blood Cells into Peripheral Vein, Percutaneous Approach (ICD-10-PCS; 2017-01-23)
PROC: 06HM33Z Insertion of Infusion Device into Right Femoral Vein, Percutaneous Approach (ICD-10-PCS; 2017-01-23)
PROC: 02HV33Z Insertion of Infusion Device into Superior Vena Cava, Percutaneous Approach (ICD-10-PCS; principal; 2017-01-23 10:00)
DX: T82.818A Embolism due to vascular prosthetic devices, implants and grafts, initial encounter (principal); N18.6 End stage renal disease; E11.22 Type 2 diabetes mellitus with diabetic chronic kidney disease; I12.0 Hypertensive chronic kidney disease with stage 5 chronic kidney disease or end stage renal disease; I82.621 Acute embolism and thrombosis of deep veins of right upper extremity; I42.9 Cardiomyopathy, unspecified; F03.90 Unspecified dementia, unspecified severity, without behavioral disturbance, psychotic disturbance, mood disturbance, and anxiety; E78.5 Hyperlipidemia, unspecified; Y83.8 Other surgical procedures as the cause of abnormal reaction of the patient, or of later complication, without mention of misadventure at the time of the procedure; J44.9 Chronic obstructive pulmonary disease, unspecified; F41.9 Anxiety disorder, unspecified; F29 Unspecified psychosis not due to a substance or known physiological condition; H54.8 Legal blindness, as defined in USA; D63.1 Anemia in chronic kidney disease; Z79.899 Other long term (current) drug therapy; Y92.89 Other specified places as the place of occurrence of the external cause; Z88.6 Allergy status to analgesic agent; Z99.2 Dependence on renal dialysis
CPT/HCPCS: 36415; 71010; 76000; 80048; 80053; 81000-TC; 82962; 83540-TC; 83550-TC; 84100-TC; 85025; 85610-TC; 85730-TC; 86886; 86900; 86901; 86920; 87081; 90935; 93005; 93923; 93971; 96374; 99285; G0365; J0885; J1200; J1630; J1644; J1815; J2060; J3490; J7030; P9021; Q0163

== ENCOUNTER 2017-02-05 08:09 | Emergency (ER) | payer OTHER, MEDICAID ==
[~2017-02-05] VITALS: Ht 188 cm; Wt 81.6 kg
[2017-02-05 08:09] VITALS: BP_SYST 152
[2017-02-05 08:50] LABS: BASOPHILS % (AUTO) 0.3 % (0.0-2.0); EOSINOPHILS # (AUTO) 0.5 K/uL (0.0-0.4); HEMATOCRIT 24.4 % (36-54); HEMOGLOBIN 7.8 g/dL (14.0-18.0); LYMPHOCYTES # (AUTO) 0.8 K/uL (1.0-5.5); LYMPHOCYTES % (AUTO) 6.2 % (20.5-51.5); MEAN CORPUSCULAR HEMOGLOBIN 31 pg (27-31); MEAN CORPUSCULAR HGB CONC 32 % (32-36); MEAN CORPUSCULAR VOLUME 96 fL (79.0-98.0); MONOCYTES # (AUTO) 0.7 K/uL (0.0-1.0); MONOCYTES % (AUTO) 5.2 % (1.7-9.3); NEUTROPHILS % (AUTO) 84.3 % (40.0-70.0); PLATELET COUNT (AUTO) 304 K/uL (130-430); RED BLOOD CELL COUNT(AUTO) 2.56 MIL/uL (4.2-6.2); RED CELL DISTRIBUTION WIDTH 19.1 % (9.0-15.0)
[2017-02-05 09:08] LABS: ANION GAP 8 (5-15); CALCIUM 8.9 mg/dL (8.4-11.0); CHLORIDE 104 mmol/L (98-107); GLUCOSE 90 mg/dL (70-99); POTASSIUM 4.7 mmol/L (3.5-5.1); SODIUM SERUM 140 mmol/L (136-145); UREA NITROGEN, BLOOD 42 mg/dL (8-21)
[2017-02-05 09:11] LABS: INR 1.1 (0.80-1.20); PROTHROMBIN TIME 11.4 SECS (9.5-12.5)
[2017-02-05 09:13] LABS: ALANINE AMINOTRANSFERASE 30 U/L (12-78); ALBUMIN 2.4 g/dL (3.4-4.8); ASPARTATE AMINOTRANSFERASE 19 U/L (10-37); TOTAL BILIRUBIN 0.4 mg/dL (0.0-1.0)
[2017-02-05 11:26] VITALS: BP_SYST 146
[2017-02-06] MEDS ORDERED: MIDO5TAB20 PO (21:49)
== END 2017-02-05 11:26 | disposition home or self-care (01) ==
LOC: SED 08:09
DX: D64.9 Anemia, unspecified (principal); I42.9 Cardiomyopathy, unspecified; J44.9 Chronic obstructive pulmonary disease, unspecified; F41.9 Anxiety disorder, unspecified; I12.0 Hypertensive chronic kidney disease with stage 5 chronic kidney disease or end stage renal disease; E11.22 Type 2 diabetes mellitus with diabetic chronic kidney disease; N18.6 End stage renal disease; Z99.2 Dependence on renal dialysis; Z79.4 Long term (current) use of insulin; Z79.899 Other long term (current) drug therapy; Z88.5 Allergy status to narcotic agent
CPT/HCPCS: 36415; 80053; 85025; 85610-TC; 85730-TC; 93005; 99285